=== PATIENT | male | born 1940 | race Caucasian/White ===

== ENCOUNTER 2017-12-18 20:23 | Inpatient (IN) | payer OTHER, MEDICARE ==
[~2017-12-18] VITALS: Ht 177.8 cm; Wt 85.0 kg
[~2017-12-18 20:23] MED LIST: AMIO200T PO; Aspirin Chew PO; LACT PO; LISI10TA3 PO; METO-426 PO; NOVO7030P2 SQ; OMEP20TA39 PO; PLAV75TA29 PO; PRED10PA PO; ROSU1TAB10 PO; SILD20 PO; VITA100018 PO; ZANTTAB PO
[2017-12-18 20:32] VITALS: O2SAT 96
[2017-12-18 20:34] VITALS: BP 217/106; PULSE 95; RESP 18; TEMP 98.1; O2SAT 95
--- NOTE | 2017-12-18 20:48 | PD ---
Physical Exam Date Seen by Provider: Dec 18, 2017 Narrative Patient presents to us for evaluation of a right hip injury following a trip and fall. This patient already has hardware in his right hip. Data Data Last Documented VS Vital Signs Date Time Temp Pulse Resp B/P (MAP) Pulse Ox O2 Delivery O2 Flow Rate FiO2 12/18/17 20:34 98.1 95 18 217/106 (143) 95 Nasal Cannula 2.00 Orders Orders Femur (Ap & Lat/2vws) (12/18/17 20:30) Hip, Uni(Ap&Lat) W Ap Pelvis (12/18/17 20:30) Ice/Cold Pack (12/18/17 20:30) Complete Blood Count With Diff (12/18/17 20:30) Basic Metabolic Panel (Bmp) (12/18/17 20:30) Prothrombin Time / Inr (Pt) (12/18/17 20:30) Act Partial Throm Time (Ptt) (12/18/17 20:30) Magnesium (Mg) (12/18/17 20:30) Iv Access Insert/Monitor (12/18/17 20:30) Ecg Monitoring (12/18/17 20:30) Oximetry (12/18/17 20:30) MDM Supervised Visit with IZYAD: Yes Narrative Course I, Dr. Das have reviewed the advance practice practitioner's documentation and am in agreement, met with the patient face to face, made the diagnosis, and the medical decision making was done by me. *My assessment and Findings: Patient is awake and alert. He is leaning towards his right and is holding his right hip and knee slightly flexed. He has good distal pulses. He does have some pretibial and pedal edema. See Sanchez Lopes note for lab and radiology results, final diagnosis and disposition Radha Das MD Dec 18, 2017 20:48
--- NOTE | 2017-12-18 20:54 | PD ---
HPI Chief Complaint: Fall Time Seen by Provider: 20:26 Travel History International Travel<30 days: No Contact w/Intl Traveler<30days: No Traveled to known affect area: No History of Present Illness HPI 77-year-old male presents to the ED via ambulance for evaluation of right hip injury. Patient had a mechanical fall today on his house. Apparently patient tripped and landed on his right hip. Patient was not able to get up on his own. Ambulance was contacted. Patient denies any his head or losing consciousness. Patient does not take any blood thinners. Injury occurred less than an hour ago. Patient has obvious deformity to the right hip. Per patient he had a fracture in 1997 which [address] surgery [address] Dr. Smith. Per patient he has had no issues since. He no longer follows with Dr. Smith as this injury occurred years ago. He has no allergies to medication. He was given morphine by ambulance. Per patient his pain is 8 out of 10. Gets worse with movement. He denies any other injuries. No back or neck pain. 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) High Cholesterol: Yes Chemotherapy: No Chest Pain: No Congestive Heart Failure: No COPD: No Cerebrovascular Accident: Yes Diabetes: Yes (iv insulin ) Patient Takes Glucophage: Yes Diminished Hearing: No Endocrine: Yes Gastrointestinal Disorders: Yes (VIVIENNE VERA) GERD: Yes Genitourinary: No Hypertension: Yes Immune Disorder: No Implanted Vascular Access Dvce: Yes Kidney Stones: Yes Musculoskeletal: Yes Neurologic: Yes (STROKE) Psychiatric: No Reproductive: No Respiratory: No Immunizations Current: Yes Myocardial Infarction: Yes Radiation Therapy: No Sleep Apnea: No Thyroid Disease: No Influenza Vaccination: Yes Past Surgical History Abdominal Surgery: Yes (MAC, ) Appendectomy: Yes Body Medical Devices: 3 TITANIUM SCREWS IN RIGHT HIP Cardiac Surgery: Yes (STENTS, CARDIAC CATH) Cholecystectomy: Yes (1999) Other Surgery: Yes (ENDARTERECTOMY) Social History Alcohol Use: Yes (BEER ONCE IN A WHILE/OCCASIONAL SHOT OF LIQUOR) Tobacco Use: No Substance Use: No Allergies-Medications (Allergen,Severity, Reaction): Coded Allergies: No Known Allergies (Verified Adverse Reaction, Unknown, 4/16/18) Reported Meds & Prescriptions Reported Meds & Active Scripts Active Lisinopril 10 Mg Tab 10 Mg PO DAILY Prednisone (21) 10 mg tab Dose Pack (Prednisone) 10 Mg Pack 10 Mg PO DIRECTED Plavix (Clopidogrel Bisulfate) 75 Mg Tab 75 Mg PO DAILY [Aspirin Chew] 81 MG Chew 81 Mg PO DAILY Amiodarone (Amiodarone HCl) 200 Mg Tab 400 Mg PO BID Reported Novolin 70-30 Inj (Insulin Human Isoph/Insulin Regular) 1,000 Unit/10 Ml Vial 30 Units SQ BID Revatio (Sildenafil Citrate) 20 Mg Tab 150 Mg PO WEEKLY Rosuvastatin (Rosuvastatin Calcium) 40 Mg Tab 40 Mg PO HS Zantac 150 Maximum Strength (Ranitidine HCl) 150 Mg Tab 150 Mg PO BID Vitamin D3 (Cholecalciferol) 1,000 Unit Tab 1,000 Units PO DAILY Metoprolol Tartrate 75 Mg Tab 75 Mg PO BID Review of Systems Except as stated in HPI: all other systems reviewed are Neg Physical Exam Narrative GENERAL: SKIN: Warm and dry. HEAD: Atraumatic. Normocephalic. EYES: Pupils equal and round. No scleral icterus. No injection or drainage. ENT: No nasal bleeding or discharge. Mucous membranes pink and moist. Tongue is midline. No uvula deviation. NECK: Trachea midline. No JVD. CARDIOVASCULAR: Regular rate and rhythm. No murmurs, S3, S4. RESPIRATORY: No accessory muscle use. Clear to auscultation. Breath sounds equal bilaterally. GASTROINTESTINAL: Abdomen soft, non-tender, nondistended. Hepatic and splenic margins not palpable. MUSCULOSKELETAL: Extremities without clubbing, cyanosis, or edema. No obvious deformities. Full range of motion of the upper and lower extremities bilaterally with exception of the right hip which patient keeps externally rotated and will not move without severe pain. Shortening noted. 2+ pulses bilaterally in the lower extremities in the dorsalis pedis and posterior tibialis. No obvious lumbar, thoracic, cervical spine tenderness to palpation. NEUROLOGICAL: Awake and alert. No obvious cranial nerve deficits. Motor grossly within normal limits. Five out of 5 muscle strength in the arms and legs. Normal speech. PSYCHIATRIC: Appropriate mood and affect; insight and judgment normal. Data Data Last Documented VS Vital Signs Date Time Temp Pulse Resp B/P (MAP) Pulse Ox O2 Delivery O2 Flow Rate FiO2 12/18/17 22:03 95 20 198/99 (132) 100 Room Air 12/18/17 20:34 98.1 2.00 Orders Orders Femur (Ap & Lat/2vws) (12/18/17 20:30) Ice/Cold Pack (12/18/17 20:30) Complete Blood Count With Diff (12/18/17 20:30) Basic Metabolic Panel (Bmp) (12/18/17 20:30) Prothrombin Time / Inr (Pt) (12/18/17 20:30) Act Partial Throm Time (Ptt) (12/18/17 20:30) Magnesium (Mg) (12/18/17 20:30) Iv Access Insert/Monitor (12/18/17 20:30) Ecg Monitoring (12/18/17 20:30) Oximetry (12/18/17 20:30) Hip, Uni(Ap&Lat) Wo Ap Pelvis (12/18/17 20:30) Chest, Single Ap (12/18/17 ) Hydromorphone Pf Inj (Dilaudid Pf Inj) (12/18/17 21:45) Ondansetron Inj (Zofran Inj) (12/18/17 21:45) Type And Screen (12/18/17 22:21) Urinalysis - C+S If Indicated (12/18/17 22:21) Electrocardiogram (12/18/17 ) Splint Or Brace Apply/Monitor (12/18/17 22:23) Admit Order (Ed Use Only) (12/18/17 22:28) Labs Laboratory Tests Test 12/18/17 20:53 White Blood Count 8.7 TH/MM3 Red Blood Count 3.94 MIL/MM3 Hemoglobin 13.6 GM/DL Hematocrit 38.7 % Mean Corpuscular Volume 98.2 FL Mean Corpuscular Hemoglobin 34.5 PG Mean Corpuscular Hemoglobin Concent 35.2 % Red Cell Distribution Width 14.0 % Platelet Count 194 TH/MM3 Mean Platelet Volume 8.9 FL Neutrophils (%) (Auto) 70.7 % Lymphocytes (%) (Auto) 16.0 % Monocytes (%) (Auto) 8.6 % Eosinophils (%) (Auto) 3.9 % Basophils (%) (Auto) 0.8 % Neutrophils # (Auto) 6.1 TH/MM3 Lymphocytes # (Auto) 1.4 TH/MM3 Monocytes # (Auto) 0.8 TH/MM3 Eosinophils # (Auto) 0.3 TH/MM3 Basophils # (Auto) 0.1 TH/MM3 CBC Comment DIFF FINAL Differential Comment Prothrombin Time 9.5 SEC Prothromb Time International Ratio 0.9 RATIO Activated Partial Thromboplast Time 22.9 SEC Blood Urea Nitrogen 18 MG/DL Creatinine 1.24 MG/DL Random Glucose 248 MG/DL Calcium Level 7.5 MG/DL Magnesium Level 1.5 MG/DL Sodium Level 138 MEQ/L Potassium Level 4.8 MEQ/L Chloride Level 109 MEQ/L Carbon Dioxide Level 19.1 MEQ/L Anion Gap 10 MEQ/L Estimat Glomerular Filtration Rate 57 ML/MIN MDM Medical Decision Making Medical Screen Exam Complete: Yes Emergency Medical Condition: Yes Medical Record Reviewed: Yes Interpretation(s) CBC & BMP Diagram 12/18/17 20:53 Calcium Level 7.5 L, Magnesium Level 1.5 Last Impressions Hip X-Ray 12/18/172029 Signed Impressions: Service Date/Time: Monday, December 18, 2017 21:01 - CONCLUSION: Acute oblique fracture at the proximal femoral shaft. The patient has surgical screws through the femoral neck from prior ORIF. Wesley Neves MD Femur X-Ray 12/18/172029 Signed Impressions: Service Date/Time: Monday, December 18, 2017 21:03 - CONCLUSION: Acute fracturing of the proximal femoral shaft. Wesley Neves MD Chest X-Ray 12/18/17 0000 Signed Impressions: Service Date/Time: Monday, December 18, 2017 21:46 - CONCLUSION: No acute disease. Wesley Neves MD [facility] Differential Diagnosis Fracture versus sprain versus strain versus bruise versus contusion versus dislocation Narrative Course 77-year-old male that presents to the ED for evaluation of right hip injury. Patient was properly examined and was found to have signs and symptoms concerning for fracture versus dislocation versus both. Labs and imaging ordered. Labs and imaging shows femoral shaft fracture. Labs and imaging were ordered. Labs and imaging otherwise unremarkable. This time patient will be admitted for further evaluation and surgery for his hip. Patient agrees with this. Case discussed with Dr. Das who evaluated the patient agrees with plan. Case discussed with Dr. Vuong who agrees to admission to her service. Diagnosis Primary Impression: Right femoral shaft fracture Qualified Codes: S72.301A - Unspecified fracture of shaft of right femur, initial encounter for closed fracture Admitting Information Admitting Physician Requests: Admit Patric Cali Dec 18, 2017 20:53
[2017-12-18 21:13] LABS: AUTOMATED NEUTROPHIL # 6.1 TH/MM3 (1.8-7.7); BASOPHIL # 0.1 TH/MM3 (0-0.2); BASOPHIL % 0.8 % (0.0-2.0); EOSINOPHIL # 0.3 TH/MM3 (0-0.4); EOSINOPHIL % 3.9 % (0.0-4.0); HEMATOCRIT 38.7 % (39.0-51.0); HEMOGLOBIN 13.6 GM/DL (13.0-17.0); LYMPHOCYTE # 1.4 TH/MM3 (1.0-4.8); MEAN CELL VOLUME 98.2 FL (80.0-100.0); MEAN CORPUSCULAR HEMOGLOBIN 34.5 PG (27.0-34.0); MEAN CORPUSCULAR HGB CONC 35.2 % (32.0-36.0); MEAN PLATELET VOLUME 8.9 FL (7.0-11.0); MONO % 8.6 % (0.0-8.0); MONOCYTE # 0.8 TH/MM3 (0-0.9); NEUT % 70.7 % (16.0-70.0); PLATELET COUNT 194 TH/MM3 (150-450); RED BLOOD COUNT 3.94 MIL/MM3 (4.50-5.90); WHITE BLOOD COUNT 8.7 TH/MM3 (4.0-11.0)
[2017-12-18 21:19] LABS: INTERNATIONAL NORMALIZED RATIO 0.9 RATIO; PROTHROMBIN TIME - PATIENT 9.5 SEC (9.8-11.6)
[2017-12-18 21:30] LABS: BICARBONATE 19.1 MEQ/L (21.0-32.0); CALCIUM 7.5 MG/DL (8.5-10.1); CREATININE 1.24 MG/DL (0.60-1.30); MAGNESIUM 1.5 MG/DL (1.5-2.5)
[2017-12-18] MEDS ORDERED: ONDANSETRON HCL 4 MG/2 ML VIAL IV PUSH ONE (21:45)
[2017-12-18] MEDS ORDERED: HYDROmorphone HCL PF 2 MG/ML VIAL IV PUSH ONE (21:45)
--- NOTE | 2017-12-18 21:47 | RADRPT ---
EXAM DATE/TIME: 12/18/2017 21:01 [facility] COMPARISON: No previous studies available for comparison. INDICATIONS : Fall. Right hip pain. MEDICAL HISTORY : Myocardial infarction. Gastroesophageal reflux disease. Stroke. Numbness. Nephrolithiasis. Arthr itis. Diabetes. SURGICAL HISTORY : Cholecystectomy. Appendectomy. Left carotid endarterectomy. Cardiac stent. Cardiac catheterization. Right hip pinning ENCOUNTER: Subsequent ACUITY: 1 day PAIN SCORE: 10/10 LOCATION: Right hip FINDINGS: There is an oblique fracture through the proximal right femur. There are 3 screws seen through the ri ght femoral neck. There is hypertrophic degenerative change at the hip joint and femoral head. There is joint space narrowing. The bones are osteopenic. Vascular calcifications are seen. CONCLUSION: Acute oblique fracture at the proximal femoral shaft. The patient has surgical screws through the fem oral neck from prior ORIF. Wesley Neves MD on December 18, 2017 at 21:44 Board Certified Radiologist. This report was verified electronically.
--- NOTE | 2017-12-18 21:49 | RADRPT ---
EXAM DATE/TIME: 12/18/2017 21:03 [facility] COMPARISON: No previous studies available for comparison. INDICATIONS : Fall. Right hip pain. MEDICAL HISTORY : Myocardial infarction. Gastroesophageal reflux disease. Stroke. Numbness. Nephrolithiasis. Arthr itis. Diabetes. SURGICAL HISTORY : Cholecystectomy. Appendectomy. Left carotid endarterectomy. Cardiac stent. Cardiac catheterization. Right hip pinning. ENCOUNTER: Subsequent ACUITY: 1 day PAIN SCORE: 10/10 LOCATION: Right hip FINDINGS: There is no oblique fracture through the proximal right femoral shaft. The femoral neck is intact. Th ere are 3 screws seen through the femoral neck from prior ORIF. There is degenerative change at the h ip joint with joint space narrowing and remodeling of the femoral head. There is joint space narrowin g seen at the knee. Vascular calcifications are present. CONCLUSION: Acute fracturing of the proximal femoral shaft. Wesley Neves MD on December 18, 2017 at 21:46 Board Certified Radiologist. This report was verified electronically.
[2017-12-18 22:03] VITALS: BP 198/99; PULSE 95; RESP 20; O2SAT 100
--- NOTE | 2017-12-18 22:12 | RADRPT ---
EXAM DATE/TIME: 12/18/2017 21:46 [facility] COMPARISON: CHEST SINGLE AP, September 01, 2015, 4:05. INDICATIONS : evaluate chest for trauma, fell MEDICAL HISTORY : Myocardial infarction. Gastroesophageal reflux disease. Stroke. Nephrolithiasis. Arthritis. Diabetes SURGICAL HISTORY : Cholecystectomy. Appendectomy. Left carotid endarterectomy. Cardiac stent Cardiac catheterization. Ri ght hip pinning ENCOUNTER: Initial ACUITY: 1 day PAIN SCORE: 0/10 LOCATION: chest FINDINGS: The patient is status post sternotomy. The heart size is normal. The lungs are grossly clear. No effu rudolph is seen. CONCLUSION: No acute disease. Wesley Neves MD on December 18, 2017 at 22:10 Board Certified Radiologist. This report was verified electronically.
[2017-12-18 22:52] VITALS: BP 189/98; PULSE 97; RESP 18; O2SAT 98
[2017-12-18 23:06] LABS: BILIRUBIN, URINE NEG (NEG); BLOOD, URINE TRACE (NEG); GLUCOSE,URINE 1000 mg/dL (NEG); KETONE, URINE TRACE mg/dL (NEG); NITRITE,URINE NEG (NEG); SQUAMOUS EPITHELIAL CELL URINE <1 /hpf (0-5); URINE COLOR YELLOW (YELLW/STRAW); URINE LEUKOCYTE ESTERASE NEG (NEG)
[2017-12-19 00:01] VITALS: BP 177/87; PULSE 89; RESP 18; O2SAT 98
--- NOTE | 2017-12-19 00:40 | HHI.HP ---
[facility] Service [facility] Primary Care Physician [facility] Admission Diagnosis acute right femoral shaft fracture Diagnoses: Travel History International Travel<30 Days: No Contact w/Intl Traveler <30 Da: No Traveled to Known Affected Are: No History of Present Illness 77-year-old male with a past medical history significant for insulin-dependent diabetes mellitus, coronary artery disease, hypertension and hyperlipidemia presents the emergency department for evaluation of a fall. The patient reports that he was placed taking out the trash when he lost his footing and fell backwards. He states he then twisted to the right following on his right hip. He is denies any loss of consciousness. He denies any other injuries. Complains of right lower extremity pain. No chest pain or shortness of breath. No abdominal pain. No nausea/vomiting/diarrhea. No weakness/fatigue. Review of Systems Except as stated in HPI: all other systems reviewed are Neg Past Family Social History Past Medical History Diabetes mellitus CAD Hypertension Hyperlipidemia Past Surgical History Status post CABG (unknown number of vessels) Appendectomy Right hip surgery Reported Medications Reported Meds & Active Scripts Active Lisinopril 10 Mg Tab 10 Mg PO DAILY Prednisone (21) 10 mg tab Dose Pack (Prednisone) 10 Mg Pack 10 Mg PO DIRECTED Plavix (Clopidogrel Bisulfate) 75 Mg Tab 75 Mg PO DAILY [Aspirin Chew] 81 MG Chew 81 Mg PO DAILY Amiodarone (Amiodarone HCl) 200 Mg Tab 400 Mg PO BID Reported Novolin 70-30 Inj (Insulin Human Isoph/Insulin Regular) 1,000 Unit/10 Ml Vial 30 Units SQ BID Revatio (Sildenafil Citrate) 20 Mg Tab 150 Mg PO WEEKLY Rosuvastatin (Rosuvastatin Calcium) 40 Mg Tab 40 Mg PO HS Zantac 150 Maximum Strength (Ranitidine HCl) 150 Mg Tab 150 Mg PO BID Vitamin D3 (Cholecalciferol) 1,000 Unit Tab 1,000 Units PO DAILY Metoprolol Tartrate 75 Mg Tab 75 Mg PO BID Allergies: Coded Allergies: No Known Allergies (Verified Adverse Reaction, Unknown, 12/18/17) Family History Patient was adopted. Social History Occasional alcohol. Denies tobacco and illicit drugs. Physical Exam Vital Signs Vital Signs Date Time Temp Pulse Resp B/P (MAP) Pulse Ox O2 Delivery O2 Flow Rate FiO2 12/19/17 00:01 89 18 177/87 (117) 98 Room Air 12/18/17 22:52 97 18 189/98 (128) 98 Room Air 12/18/17 22:03 95 20 198/99 (132) 100 Room Air 12/18/17 20:34 98.1 95 18 217/106 (143) 95 Nasal Cannula 2.00 12/18/17 20:32 96 Nasal Cannula 2.00 Physical Exam GENERAL: male lying in bed SKIN: No rashes, ecchymoses or lesions. Cool and dry. HEAD: Atraumatic. Normocephalic. No temporal or scalp tenderness. EYES: Pupils equal round and reactive. Extraocular motions intact. No scleral icterus. No injection or drainage. ENT: Nose without bleeding, purulent drainage or septal hematoma. Throat without erythema, tonsillar hypertrophy or exudate. Uvula midline. Airway patent. NECK: Trachea midline. No JVD or lymphadenopathy. Supple, nontender, no meningeal signs. CARDIOVASCULAR: Regular rate and rhythm without murmurs, gallops, or rubs. RESPIRATORY: Clear to auscultation. Breath sounds equal bilaterally. No wheezes , rales, or rhonchi. GASTROINTESTINAL: Abdomen soft, non-tender, nondistended. No hepato-splenomegaly , or palpable masses. No guarding. MUSCULOSKELETAL: Extremities without clubbing, cyanosis, or edema. Right leg externally rotated. Neurovascularly intact. NEUROLOGICAL: Awake and alert. Cranial nerves II through XII intact. Motor and sensory grossly within normal limits. Normal speech. Laboratory Laboratory Tests Test 12/18/17 20:53 12/18/17 22:46 White Blood Count 8.7 Red Blood Count 3.94 Hemoglobin 13.6 Hematocrit 38.7 Mean Corpuscular Volume 98.2 Mean Corpuscular Hemoglobin 34.5 Mean Corpuscular Hemoglobin Concent 35.2 Red Cell Distribution Width 14.0 Platelet Count 194 Mean Platelet Volume 8.9 Neutrophils (%) (Auto) 70.7 Lymphocytes (%) (Auto) 16.0 Monocytes (%) (Auto) 8.6 Eosinophils (%) (Auto) 3.9 Basophils (%) (Auto) 0.8 Neutrophils # (Auto) 6.1 Lymphocytes # (Auto) 1.4 Monocytes # (Auto) 0.8 Eosinophils # (Auto) 0.3 Basophils # (Auto) 0.1 CBC Comment DIFF FINAL Differential Comment Prothrombin Time 9.5 Prothromb Time International Ratio 0.9 Activated Partial Thromboplast Time 22.9 Blood Urea Nitrogen 18 Creatinine 1.24 Random Glucose 248 Calcium Level 7.5 Magnesium Level 1.5 Sodium Level 138 Potassium Level 4.8 Chloride Level 109 Carbon Dioxide Level 19.1 Anion Gap 10 Estimat Glomerular Filtration Rate 57 Urine Color YELLOW Urine Turbidity CLEAR Urine pH 7.0 Urine Specific [place] 1.011 Urine Protein 100 Urine Glucose (UA) 1000 Urine Ketones TRACE Urine Occult Blood TRACE Urine Nitrite NEG Urine Bilirubin NEG Urine Urobilinogen LESS THAN 2.0 Urine Leukocyte Esterase NEG Urine RBC 1 Urine WBC 1 Urine Squamous Epithelial Cells <1 Microscopic Urinalysis Comment CULT NOT INDICATED Result Diagram: 12/18/17205212/18/172052 Caprini VTE Risk Assessment Caprini VTE Risk Assessment: Mod/High Risk (score >= 2) Caprini Risk Assessment Model Point Value = 1 Point Value = 2 Point Value = 3 Point Value = 5 Age 41-60 Minor surgery BMI > 25 kg/m2 Swollen legs Varicose veins or History of unexplained or recurrent spontaneous Oral contraceptives or hormone replacement Sepsis (< 1 month) Serious lung disease, including pneumonia (< 1 month) Abnormal pulmonary function Acute myocardial infarction Congestive heart failure (< 1 month) History of inflammatory bowel disease Medical patient at bed rest Age 61-74 Arthroscopic surgery Major open surgery (> 45 min) Laparoscopic surgery (> 45 min) Malignancy Confined to bed (> 72 hours) Immobilizing plaster cast Central venous access Age >= 75 History of VTE Family history of VTE Factor V Leiden Prothrombin [id number] Lupus anticoagulant Anticardiolipin antibodies Elevated serum homocysteine Heparin-induced thrombocytopenia Other congenital or acquired thrombophilia Stroke (< 1 month) Elective arthroplasty Hip, pelvis, or leg fracture Acute spinal cord injury (< 1 month) Prophylaxis Regimen Total Risk Factor Score Risk Level Prophylaxis Regimen 0-1 Low Early ambulation 2 Moderate Order ONE of the following: *Sequential Compression Device (SCD) *Heparin 5000 units SQ BID 3-4 Higher Order ONE of the following medications: *Heparin 5000 units SQ TID *Enoxaparin/Lovenox 40 mg SQ daily (WT < 150 kg, CrCl > 30 mL/min) *Enoxaparin/Lovenox 30 mg SQ daily (WT < 150 kg, CrCl > 10-29 mL/min) *Enoxaparin/Lovenox 30 mg SQ BID (WT < 150 kg, CrCl > 30 mL/min) AND/OR *Sequential Compression Device (SCD) 5 or more Highest Order ONE of the following medications: *Heparin 5000 units SQ TID (Preferred with Epidurals) *Enoxaparin/Lovenox 40 mg SQ daily (WT < 150 kg, CrCl > 30 mL/min) *Enoxaparin/Lovenox 30 mg SQ daily (WT < 150 kg, CrCl > 10-29 mL/min) *Enoxaparin/Lovenox 30 mg SQ BID (WT < 150 kg, CrCl > 30 mL/min) AND *Sequential Compression Device (SCD) Assessment and Plan Assessment and Plan Assessment/plan: 1. Right femur fracture Hip x-ray significant for acute oblique fracture at the proximal femoral shaft Orthopedic surgery consulted, appreciate assistance Dilaudid for pain N.p.o. 2. Diabetes mellitus Holding home Novolin as patient n.p.o. Sliding-scale insulin Monitor blood glucose 3. Hypertension/hyperlipidemia/coronary artery disease Holding home aspirin/Plavix Continue home medications FEN NPO NS at 100 cc/hr Electrolytes: monitor and replete prn Holding pharmacologic anticoagulation secondary to anticipated operative intervention Physician Certification 2 Midnight Certification Type: Admission for Inpatient Services Order for Inpatient Services The services are ordered in accordance with Medicare regulations or non- Medicare payer requirements, as applicable. In the case of services not specified as inpatient-only, they are appropriately provided as inpatient services in accordance with the 2-midnight benchmark. Estimated LOS (days): 2 2 days is the estimated time the patient will need to remain in the hospital, assuming treatment plan goals are met and no additional complications. Post-Hospital Plan: Not yet determined Jolene Vuong MD Dec 19, 2017 00:40
[2017-12-19] MEDS ORDERED: SENNOSIDES 8.6 MG TAB PO PRN (00:45)
[2017-12-19] MEDS ORDERED: LACTULOSE SYRUP 20 GM/30 ML CUP PO PRN (00:45)
[2017-12-19] MEDS ORDERED: SODIUM CHLORIDE 0.9% FLUSH 10 ML FLUSH IV FLUSH PRN (00:45)
[2017-12-19] MEDS ORDERED: DEXTROSE 50% IN WATER 50 ML VIAL(D50) IV PUSH PRN (00:45)
[2017-12-19] MEDS ORDERED: NALOXONE HCL 0.4 MG/ML AMP IV PUSH PRN (00:45)
[2017-12-19] MEDS ORDERED: MAGNESIUM HYDROXIDE SUSP 30 ML CUP PO PRN (00:45)
[2017-12-19] MEDS ORDERED: ACETAMINOPHEN 325 MG TAB PO PRN (00:45)
[2017-12-19] MEDS ORDERED: GLUCAGON 1 MG/ML VIAL OTHER PRN (00:45)
[2017-12-19] MEDS ORDERED: BISACODYL 10 MG SUPP RECTAL PRN (00:45)
[2017-12-19] MEDS ORDERED: ONDANSETRON HCL 4 MG/2 ML VIAL IVP PRN (00:45)
[2017-12-19] MEDS: HYDROmorphone HCL PF 2 MG/ML VIAL IV PUSH PRN ×2 (00:50→05:04)
[2017-12-19] MEDS: SODIUM CHLOR 0.9% 1000 ML INJ 1,000 ML IV SCH ×3 (00:56→20:31)
[2017-12-19 04:22] VITALS: BP 161/82; PULSE 106; RESP 18; TEMP 97.8; O2SAT 96
[2017-12-19] MEDS ORDERED: SODIUM CHLORID 0.9% 500 ML IV PRN (06:15)
[2017-12-19] MEDS ORDERED: POVIDONE IODINE 5% (ANTISEPSIS KIT) 4 APPLICATIONS EACH NARE PRN (06:15)
[2017-12-19] MEDS ORDERED: CHLORHEXIDINE GLUCONATE 2 % 1 PACK (2 CLOTHS) TOPICAL PRN (06:15)
[2017-12-19] MEDS ORDERED: ceFAZolin INJ 1,000 MG VIAL ONE (07:15)
[2017-12-19] MEDS ORDERED: VANCOMYCIN HCL 1000 MG VIAL ONE (07:15)
[2017-12-19] MEDS ORDERED: GENTAMICIN SULFATE 80 MG/2 ML VIAL ONE (07:15)
[2017-12-19] MEDS: LACTATED RINGER'S 1000 ML IV PRN ×2 (07:15→22:32)
[2017-12-19] MEDS ORDERED: SODIUM CHLOR 0.9% 250 ML INJ 250 ML ONE (07:16)
--- NOTE | 2017-12-19 07:18 | MB ---
cc: Dima Velazquez MD DATE: 12/19/2017 REASON FOR CONSULTATION: Right proximal femur fracture. HISTORY OF PRESENT ILLNESS: Vasyl is a 77-year-old male who has a history of diabetes, coronary artery disease, hypertension, and high cholesterol. He states that he was taking his trash out when he lost his balance and fell. He landed on his right side. He had immediate right hip pain. He has a history of previous right hip fracture more than 10 years ago treated with internal fixation. Currently, his only complaint is his right hip. He denies dizziness, syncope, loss of consciousness. The pain is worse with movement and is improved with rest. PAST MEDICAL HISTORY: Illnesses: Diabetes, coronary artery disease, hypertension, and high cholesterol. PAST SURGICAL HISTORY: Coronary artery bypass, appendectomy, and right hip pinning. MEDICATIONS: 1. Lisinopril. 2. Prednisone. 3. Plavix. 4. Aspirin. 5. Amiodarone. 6. Insulin. 7. Zantac. 8. Vitamin D. 9. Metoprolol. ALLERGIES: NO KNOWN DRUG ALLERGIES. FAMILY HISTORY: The patient was adopted. His family history is unknown. SOCIAL HISTORY: The patient denies tobacco or drug use. He does drink alcohol occasionally. REVIEW OF SYSTEMS: The patient denies headache, visual changes, neck pain, chest pain, shortness of breath, abdominal pain, nausea, vomiting, recent weight loss, fevers or chills, numbness or tingling of extremities or recent weight loss. He complains of right hip pain. The pain is worse with movement. PHYSICAL EXAMINATION: GENERAL: The patient is a well-developed, well-nourished, 77-year-old male. He is awake and alert. He appears well-developed and well-nourished. He is in no acute distress. VITAL SIGNS: Temperature 97.8, pulse 106, respirations 18, blood pressure 161/82, O2 saturations 96% on room air. HEENT: The patient is normocephalic. Pupils are equal. NECK: Soft, nontender. The trachea is in the midline. ABDOMEN: Soft, nontender, nondistended. EXTREMITIES: Examination of bilateral upper extremities reveals no significant pain with shoulder, elbow or wrist motion. He has intact sensation in all fingers bilaterally. Radial pulses are palpable. Skin is intact to both hands. Examination of the left leg reveals no pain with hip, knee or ankle motion. Skin is intact. Dorsalis pedis pulses palpable. Sensation is intact. Skin is intact. Examination of right leg reveals pain with any hip motion. He is diffusely tender to palpation on the proximal femur. Thigh and calf compartments are soft. Sensation is intact to the right foot. Dorsalis pedis pulses palpable. X-RAYS: X-rays of right hip and femur were reviewed. X-rays reveal a healed femoral neck fracture. Hardware is in place. There are mild degenerative changes. He has a subtrochanteric femur fracture present. LABORATORY DATA: The patient has a white blood cell count of 8.7, hematocrit of 38.7, platelet count of 194. INR 0.9. BUN is 18 and creatinine is 1.24. IMPRESSION: 1. Displaced right proximal femur fracture. 2. Retained hardware from previous surgery, right hip. 3. Insulin-dependent diabetes. 4. Coronary artery disease. 5. Hypertension. PLAN: Treatment options were discussed with the patient. At this point, I would recommend removal of hardware from right hip followed by open reduction and intramedullary nail fixation of right femur. Risks of surgery include bleeding, infection, injuries to arteries, nerves and blood vessels, nonunion, malunion, painful hardware, as well as medical complications including blood clot, stroke, heart attack and . All questions were answered. He will need to continue to manage his diabetes well. He will also need to take calcium and vitamin D. All questions were answered. A mid-level provider in my office, nurse practitioner or PA, may see this patient on a follow-up basis and continue to implement the objective of this plan including: Starting or adjusting medications, injections of muscle, tendon, bursa or joints, cast application, orthotic or brace application, physical therapy, further radiographic studies including x-ray, MRI, CT, ultrasounds or bone scan, vascular studies, neurologic studies, or other specialist consultations, and proceeding with surgical management as appropriate. Dima Velazquez MD LATIF/DL , 06:58 AM , 07:17 AM
[2017-12-19] MEDS ORDERED: VITA2000 PO (08:59)
[2017-12-19] MEDS ORDERED: WALKER/ADULT/FO1 MIS (08:59)
[2017-12-19] MEDS ORDERED: HYDR-3580 PO (08:59)
[2017-12-19] MEDS ORDERED: CALCTAB19 PO (08:59)
[2017-12-19] MEDS ORDERED: VITA500012 PO (08:59)
[2017-12-19] MEDS ORDERED: XARE10TA PO (08:59)
[2017-12-19] MEDS: SODIUM CHLORIDE 0.9% FLUSH 10 ML FLUSH IV FLUSH SCH ×2 (09:00→21:00)
--- NOTE | 2017-12-19 10:17 | PD.ORT.PN ---
Subjective Subjective Remarks Mechanical fall in house with right hip pain. Was unable to ambulate. Objective Vitals Vital Signs Date Time Temp Pulse Resp B/P (MAP) Pulse Ox O2 Delivery O2 Flow Rate FiO2 12/19/17 04:22 97.8 106 18 161/82 (108) 96 12/19/17 00:39 12/19/17 00:01 89 18 177/87 (117) 98 Room Air 12/18/17 22:52 97 18 189/98 (128) 98 Room Air 12/18/17 22:03 95 20 198/99 (132) 100 Room Air 12/18/17 20:34 98.1 95 18 217/106 (143) 95 Nasal Cannula 2.00 12/18/17 20:32 96 Nasal Cannula 2.00 I/O 12/18/17 12/18/17 12/18/17 12/19/17 12/19/17 12/19/17 07:00 15:00 23:00 07:00 15:00 23:00 Intake Total 700 ml Output Total 75 ml Balance 625 ml Other 700 ml Output Estimated Blood Loss 75 ml # Voids 1 Result Diagram: 12/18/17205212/18/172052 Other Results Laboratory Tests Test 12/18/17 20:53 Prothromb Time International Ratio 0.9 RATIO Prothrombin Time 9.5 SEC (9.8-11.6) Imaging Last 24 hours Impressions Hip X-Ray 12/18/172029 Signed Impressions: Service Date/Time: Monday, December 18, 2017 21:01 - CONCLUSION: Acute oblique fracture at the proximal femoral shaft. The patient has surgical screws through the femoral neck from prior ORIF. Wesley Neves MD Femur X-Ray 12/18/172029 Signed Impressions: Service Date/Time: Monday, December 18, 2017 21:03 - CONCLUSION: Acute fracturing of the proximal femoral shaft. Wesley Neves MD Objective Remarks Bilateral extremities: No pain with range of motion shoulder elbow or wrist. Neurovascular intact distally Left lower extremity: Full range of motion neurovascularly intact Right lower extremity: Pain to palpation of hip. No pain to palpation of her knee or ankle. Distally intact sensation with good capillary refills. Active dorsiflexion and plantar flexion of foot. Assessment & Plan Assessment and Plan Right intertrochanteric femur fracture with retained hardware from previous femoral neck fracture N.p.o. Surgery today for removal of hardware and intramedullary vickey fixation of the right femur. Sign consents Reynaldo Ken Jr. Dec 19, 2017 10:17
--- NOTE | 2017-12-19 10:21 | PD.OP ---
cc: Dima Story MD Operative Report Date of Surgery: Dec 19, 2017 Preoperative Diagnosis: Displaced right subtrochanteric femur fracture, retained hardware right hip Postoperative Diagnosis: Procedure: Removal deep hardware right hip, right femur intramedullary vickey fixation Anesthesia: General Surgeon: Dima Story [employer] Management Technician(s): CY Whitney PA-C The surgical procedure was assisted by my physician laundry assistant. My P.A. presence was necessary throughout this case for the manipulation and positioning of the surgical extremity. My P.A. was assisting me throughout the duration of this procedure. The skill set of a physician laundry assistant was medically necessary to complete this procedure. During the surgical case the surgical sales representative was working at the back table and the physician laundry assistant was directly assisting me. Operation and Findings: Implants used: [11]mm x [380]mm Synthes 130 troch nail Plan of activity: 50% weight right leg Patient was seen and evaluated preoperatively. The patient has significant hip pain from proximal femur fracture. The risk and benefits of surgery were discussed in depth with the patient to include bleeding, infection, nonunion, malunion, need for hip replacement, painful hardware, as well as medical competitions including blood clots, stroke, heart attack, and . Informed consent was obtained. Operative site was marked. Patient was brought to the operating room and placed on fracture table. IV sedation was administered by anesthesiologist. Timeout procedure was performed. Hip and leg were prepped with alcohol followed by DuraPrep and draped in the usual sterile fashion. IV antibiotics were given prior to incision. Procedure began with removal of deep hardware. A 2 inch incision was made over the lateral aspect of the trochanter. Fluoroscopy was used to identify the location of the 3 screws. Iliotibial band was split with Bovie. The screw heads were now identified. Using the appropriate screwdriver, each of the screws was removed. Fluoroscopy confirmed removal of appropriate hardware. Next attention was turned towards reduction of fracture. Traction was applied. The leg was manipulated to achieve reduction. Excellent reduction was achieved. Fluoroscopy was used to confirm reduction. A three inch incision was made proximal to the trochanter. Subcutaneous tissue was dissected bluntly. Guidepin was placed at the tip of the trochanter and advanced into the femoral canal. Fluoroscopy confirmed appropriate guidepin placement. A opening reamer was placed over the guidepin. A long ball tipped guide pin was now placed down the femoral canal into the center of the distal femur. The nail length was now measured. Fluoroscopy confirmed appropriate guidepin placement. Flexible reamers were now passed over the guidepin to ream the intramedullary canal. The nail was attached to the insertion handle. Nail was now placed over the guidepin into the femoral canal. Fluoroscopy confirmed appropriate nail placement. Cannulas were placed through the insertion handle down to the femur. Guidepin was now placed through the femoral nail into the center of the femoral head. Fluoroscopy confirmed appropriate guidepin placement. Screw length was measured. Cannulated drill was placed over the guidepin. Appropriate length lag screw was now placed. Traction was released and compression was applied. The set screw was now tightened in static mode. Next, using perfect craig technique two distal interlocking screws were placed. Screw holes were predrilled and screw lengths were measured. Final fluoroscopy revealed well aligned fracture with well-placed hardware. Incision was closed with 3-0 Vicryl and darcy. Sterile dressings were applied. Patient was awakened and transferred to recovery room. Dima Story MD Dec 19, 2017 10:21
[2017-12-19] MEDS ORDERED: MORPHINE SULFATE 4 MG/ML INJ IV PUSH PRN (10:30)
[2017-12-19] MEDS ORDERED: diphenhydrAMINE HCL 25 MG CAP PO PRN (10:30)
[2017-12-19] MEDS ORDERED: *morphine SULFATE 4 MG/ML PERIprocedure ONLY ONE (11:05)
[2017-12-19] MEDS: INSULIN ASPART SUPPLEMENTAL SCALE SQ SCH ×3 (11:05→20:06)
[2017-12-19] MEDS: METOPROLOL TARTRATE 50 MG TAB PO SCH ×2 (11:30→20:05)
[2017-12-19] MEDS: DOCUSATE SODIUM 50 MG/SENNA 8.6 MG TAB PO SCH ×2 (11:30→20:05)
[2017-12-19] MEDS: LISINOPRIL 10 MG TAB PO SCH (11:30)
[2017-12-19] MEDS: AMIODARONE 200 MG TAB PO SCH ×2 (11:30→20:05)
[2017-12-19] MEDS ORDERED: STERILE WATER FOR INJECTION 20 ML VIAL IV ONE (12:00)
[2017-12-19] MEDS ORDERED: LABETALOL HCL 100 MG/20 ML VIAL IV ONE (12:00)
[2017-12-19] MEDS ORDERED: PROPOFOL 200 MG/20 ML AMP IV ONE (12:00)
[2017-12-19] MEDS ORDERED: LIDOCAINE HCL 1% PF 5 ML SYRINGE OTHER ONE (12:00)
[2017-12-19] MEDS ORDERED: ERGOCALCIFEROL (VIT D2) 50,000 UNIT CAP PO ONE (12:00)
[2017-12-19] MEDS ORDERED: ESMOLOL HCL 100 MG/10 ML VIAL IV ONE (12:00)
[2017-12-19] MEDS ORDERED: PHENYLEPH/NS 1000 MCG/10 ML SYR IV ONE (12:00)
[2017-12-19] MEDS ORDERED: METOPROLOL TARTRATE 5 MG/5 ML VIAL IV PUSH ONE (12:00)
[2017-12-19] MEDS ORDERED: NEOSTIGMINE 5 MG/5 ML SYRINGE IV PUSH ONE (12:00)
[2017-12-19] MEDS ORDERED: GLYCOPYRROLATE 1 MG/5 ML SYRINGE IV PUSH ONE (12:00)
[2017-12-19] MEDS ORDERED: ROCURONIUM INJ 50 MG/5 ML SYRINGE IV PUSH ONE (12:00)
[2017-12-19] MEDS ORDERED: ONDANSETRON HCL 4 MG/2 ML VIAL IV PUSH ONE (12:00)
[2017-12-19] MEDS: CALCIUM/VITAMIN D 250 MG/125 U TAB PO SCH ×2 (13:00→16:14)
[2017-12-19 13:30] VITALS: BP 139/75; PULSE 61; RESP 17; TEMP 97.8; O2SAT 96
[2017-12-19] MEDS ORDERED: PILL SPLITTER OTHER PRN (13:30)
[2017-12-19] MEDS ORDERED: DO NOT ADM ANY ANTICOAGULANT DRUGS PRN (13:30)
--- NOTE | 2017-12-19 14:29 | HHI.PR ---
Subjective Remarks Follow up for right hip fracture s/p fall. The patient is seen after surgery today. He reports sore throat and rhinitis. He states he had a "head cold" over the past few days prior to his arrival. He states his throat is more sore today following intubation. He denies any fevers/chills, cough, chest pain, or shortness of breath. He denies any hip pain currently. He lives alone but states he has a lot of local friends that check on him. He is agreeable to short term rehab if needed. Objective Vitals Vital Signs Date Time Temp Pulse Resp B/P (MAP) Pulse Ox O2 Delivery O2 Flow Rate FiO2 12/19/17 13:00 79 12 106/59 (75) 100 Nasal Cannula 2 12/19/17 12:00 77 12 129/66 (87) 100 12/19/17 11:45 80 12 144/74 (97) 100 12/19/17 11:30 74 12 156/74 (101) 100 12/19/17 11:15 75 12 158/73 (101) 99 12/19/17 11:00 76 22 171/81 (111) 100 12/19/17 10:45 87 22 142/63 (89) 98 Nasal Cannula 2 12/19/17 10:40 97.5 103 16 197/95 (129) 100 Simple Mask 6 12/19/17 04:22 97.8 106 18 161/82 (108) 96 12/19/17 00:39 12/19/17 00:01 89 18 177/87 (117) 98 Room Air 12/18/17 22:52 97 18 189/98 (128) 98 Room Air 12/18/17 22:03 95 20 198/99 (132) 100 Room Air 12/18/17 20:34 98.1 95 18 217/106 (143) 95 Nasal Cannula 2.00 12/18/17 20:32 96 Nasal Cannula 2.00 I/O 12/18/17 12/18/17 12/18/17 12/19/17 12/19/17 12/19/17 07:00 15:00 23:00 07:00 15:00 23:00 Intake Total 800 ml Output Total 75 ml Balance 725 ml Intake Oral 100 ml Other 700 ml Output Estimated Blood Loss 75 ml # Voids 1 Result Diagram: 12/18/17205212/18/172052 Imaging Last Impressions Hip X-Ray 12/18/172029 Signed Impressions: Service Date/Time: Monday, December 18, 2017 21:01 - CONCLUSION: Acute oblique fracture at the proximal femoral shaft. The patient has surgical screws through the femoral neck from prior ORIF. Wesley Neves MD Femur X-Ray 12/18/172029 Signed Impressions: Service Date/Time: Monday, December 18, 2017 21:03 - CONCLUSION: Acute fracturing of the proximal femoral shaft. Wesley Neves MD Chest X-Ray 12/18/17 0000 Signed Impressions: Service Date/Time: Monday, December 18, 2017 21:46 - CONCLUSION: No acute disease. Wesley Neves MD Objective Remarks GENERAL: Well-developed well-nourished male patient in [facility]. SKIN: Warm and dry. HEENT: Atraumatic. Normocephalic. Pupils equal and round. Mucous membranes pink and moist. NECK: Trachea midline. CARDIOVASCULAR: Regular rate and rhythm. 2/6 systolic murmur noted. RESPIRATORY: No accessory muscle use. Clear to auscultation. Breath sounds equal bilaterally. GASTROINTESTINAL: Abdomen soft, non-tender, nondistended. Hepatic and splenic margins not palpable. MUSCULOSKELETAL: Extremities without clubbing, cyanosis, or edema. No obvious deformities. Right lateral hip and distal femur with surgical dressing, CDI, ice packs in place. 2+ bilateral pedal pulses. NEUROLOGICAL: Awake and alert. No obvious cranial nerve deficits. Motor grossly within normal limits. 5/5 muscle strength in the arms and legs. Normal speech. Hoarse voice. PSYCHIATRIC: Appropriate mood and affect; insight and judgment normal. Medications and IVs Current Medications Medications (Trade) Dose Ordered Sig/Beth Route Start Time Stop Time Status Last Admin Sodium Chloride 1,000 ml @ 100 mls/hr Q10H IV 12/19/17 00:31 12/19/17 11:09 (NS Flush) 2 ml UNSCH PRN IV FLUSH 12/19/17 00:45 (NS Flush) 2 ml BID IV FLUSH 12/19/17 09:00 (Tylenol) 650 mg Q4H PRN PO 12/19/17 00:45 (Zofran Inj) 4 mg Q6H PRN IVP 12/19/17 00:45 (Narcan Inj) 0.4 mg UNSCH PRN IV PUSH 12/19/17 00:45 (Candi-Colace) 1 tab BID PO 12/19/17 09:00 12/19/17 11:30 (Milk Of Magnesia Liq) 30 ml Q12H PRN PO 12/19/17 00:45 (Senokot) 17.2 mg Q12H PRN PO 12/19/17 00:45 (Dulcolax Supp) 10 mg DAILY PRN RECTAL 12/19/17 00:45 (Lactulose Liq) 30 ml DAILY PRN PO 12/19/17 00:45 (D50w (Vial) Inj) 50 ml UNSCH PRN IV PUSH 12/19/17 00:45 (Glucagon Inj) 1 mg UNSCH PRN OTHER 12/19/17 00:45 (NovoLOG SUPPLEMENTAL SCALE) 1 ACHS SLIDING SCALE SQ 12/19/17 08:00 12/19/17 11:05 (Cordarone) 400 mg BID PO 12/19/17 09:00 12/19/17 11:30 (Prinivil) 10 mg DAILY PO 12/19/17 09:00 12/19/17 11:30 (Lopressor) 75 mg BID PO 12/19/17 09:00 12/19/17 11:30 (Lipitor) 80 mg HS PO 12/19/17 21:00 Lactated Ringer's 1,000 ml @ 30 mls/hr Q24H PRN IV 12/19/17 06:15 12/22/17 06:14 12/19/17 07:15 Sodium Chloride 500 ml @ 30 mls/hr [id number] PRN IV 12/19/17 06:15 12/22/17 06:14 (Betadine 5% Antisepsis Kit) 1 applic INGOT PASSER PRN EACH NARE 12/19/17 06:15 12/22/17 06:14 (Chlorhexidine 2% Cloth) 3 pack INGOT PASSER PRN TOPICAL 12/19/17 06:15 12/22/17 06:14 (Lovenox Inj) 30 mg Q24H SQ 12/20/17 10:00 Cefazolin Sodium 1000 mg/Sodium Chloride 100 ml @ 200 mls/hr Q8H IV 12/19/17 17:00 12/20/17 09:29 (Oscal-D 250-125) 250 mg TID PO 12/19/17 13:00 12/19/17 13:00 (Benadryl) 25 mg Q6H PRN PO 12/19/17 10:30 ([place] 7.5-325 Mg) 1 tab Q3H PRN PO 12/19/17 10:30 (Morphine Inj) 3 mg Q3H PRN IV PUSH 12/19/17 10:30 (Vitamin D3) 5,000 units DAILY PO 12/20/17 09:00 Miscellaneous Information ALL NURSING DEPARTME... UNSCH PRN .XX 12/19/17 13:30 12/20/17 13:29 (Pill Splitter) 1 ea UNSCH PRN OTHER 12/19/17 13:30 A/P Assessment and Plan 77-year-old male with a past medical history significant for insulin-dependent diabetes mellitus, coronary artery disease s/p CABG, hypertension and hyperlipidemia presents the emergency department for evaluation of a fall with right hip pain. Right femur fracture: acute, s/p fall -Hip x-ray significant for acute oblique fracture at the proximal femoral shaft -Orthopedic surgery consulted, appreciate assistance -Pain control with [place] prn and IV morphine prn -12/19 S/p Removal deep hardware right hip, right femur intramedullary vickey fixation -Ortho recommending 50% weightbearing to RLE -PT consulted Diabetes mellitus, insulin dependent, uncontrolled: BG elevated to 327 today, likely secondary to missing home doses of Novolin 70/30 -Continue patient Novolin 70/30 30u bid (patient currently unsure if he takes 30 or 40u bid, will restart at lower dose and increase if still uncontrolled) -Monitor accu-checks and cover with SSI -diabetic diet Hypertension/hyperlipidemia/coronary artery disease: chronic, no complaints of chest pain -Holding home aspirin/Plavix for surgery -Continue home medications URI: patient presented with sore throat and rhinitis -sore throat worse post intubation, will give lozenges and lidocaine prn -monitor for improvement DVT Prophylaxis: Lovenox sq (per ortho) Shantal Garcia PA-C Dec 19, 2017 2:29 pm
[2017-12-19] MEDS ORDERED: BENZOCAINE-MENTHOL (SUGAR FREE) 15 MG-3.6 MG LOZENGE BUCCAL ONE (14:30)
[2017-12-19] MEDS ORDERED: LIDOCAINE VISCOUS 2% SOLN 15 ML UDC SWISH-SWAL PRN (14:30)
[2017-12-19] MEDS ORDERED: BENZOCAINE-MENTHOL (SUGAR FREE) 15 MG-3.6 MG LOZENGE BUCCAL PRN (14:30)
--- NOTE | 2017-12-19 15:39 | EKG ---
Date Performed: 12/18/2017 Time Performed: 23:05:28 PTAGE: 77 years EKG: Sinus rhythm Consider INFERIOR MYOCARDIAL INFARCTION - age indeterminate MODERATE T-WAVE ABNORMALITY, CONSIDER LA TERAL ISCHEMIA ABNORMAL ECG NO PREVIOUS TRACING DOCTOR: Parviz Lloyd Interpretating Date/Time 12/19/2017 15:30:08
--- NOTE | 2017-12-19 15:59 | RADRPT ---
EXAM DATE/TIME: 12/19/2017 10:11 [facility] COMPARISON: FEMUR RIGHT (AP & LAT/2VWS), December 18, 2017, 21:03. INDICATIONS : ORIF right hip fracture. MEDICAL HISTORY : Unobtaiable. SURGICAL HISTORY : Unobtainable. ENCOUNTER: Subsequent ACUITY: 2 days PAIN SCORE: Non-responsive. LOCATION: Right femur. FINDINGS: Multiple intraprocedural fluoroscopic images of the right femur and hip demonstrate interval placemen t of compression screw and intramedullary vickey. Hardware appears well-positioned. The right there is i mproved alignment of the oblique proximal femoral metadiaphyseal fracture. CONCLUSION: 1. Status post right femoral ORIF, as above. Evangelista Rios MD on December 19, 2017 at 15:54 Board Certified Radiologist. This report was verified electronically.
[2017-12-19 16:09] VITALS: BP 125/66; PULSE 87; RESP 17; TEMP 97.8; O2SAT 100
[2017-12-19 20:00] VITALS: BP 123/61; PULSE 89; RESP 18; TEMP 98.7; O2SAT 99
[2017-12-19] MEDS: ATORVASTATIN 40 MG TAB PO SCH (20:05)
[2017-12-19] MEDS: FAMOTIDINE 20 MG TAB PO SCH (20:06)
[2017-12-19] MEDS: INSULIN HUMAN NPH/R 70/30 1,000 UNITS/10 ML VIAL SQ SCH (20:06)
[2017-12-20] VITALS: BP 126/59; PULSE 83; RESP 17; TEMP 98.6; O2SAT 99
[2017-12-20] MEDS: ACETAMINOPHEN/HYDROcodone 325 MG/7.5 MG TAB PO PRN ×4 (01:18→21:44)
[2017-12-20 04:00] VITALS: BP 107/55; PULSE 75; RESP 18; TEMP 98; O2SAT 98
[2017-12-20] MEDS: SODIUM CHLOR 0.9% 1000 ML INJ 1,000 ML IV SCH ×2 (06:31→16:31)
--- NOTE | 2017-12-20 06:55 | PD.ORT.PN ---
Subjective Subjective Remarks Resting comfortably with no new complaint Objective Vitals Vital Signs Date Time Temp Pulse Resp B/P (MAP) Pulse Ox O2 Delivery O2 Flow Rate FiO2 12/20/17 04:00 98.0 75 18 107/55 (72) 98 12/20/17 00:00 98.6 83 17 126/59 (81) 99 12/19/17 20:00 98.7 89 18 123/61 (81) 99 12/19/17 16:09 97.8 87 17 125/66 (85) 100 12/19/17 13:55 Nasal Cannula 2.00 12/19/17 13:30 97.8 61 17 139/75 (96) 96 12/19/17 13:00 79 12 106/59 (75) 100 Nasal Cannula 2 12/19/17 12:00 77 12 129/66 (87) 100 12/19/17 11:45 80 12 144/74 (97) 100 12/19/17 11:30 74 12 156/74 (101) 100 12/19/17 11:15 75 12 158/73 (101) 99 12/19/17 11:00 76 22 171/81 (111) 100 12/19/17 10:45 87 22 142/63 (89) 98 Nasal Cannula 2 12/19/17 10:40 97.5 103 16 197/95 (129) 100 Simple Mask 6 I/O 12/19/17 12/19/17 12/19/17 12/20/17 12/20/17 12/20/17 07:00 15:00 23:00 07:00 15:00 23:00 Intake Total 1270 ml 100 ml 1451 ml Output Total 75 ml 325 ml Balance 1195 ml 100 ml 1126 ml Intake Oral 100 ml 240 ml IV Total 470 ml 100 ml 1211 ml Other 700 ml Output Urine Total 325 ml Estimated Blood Loss 75 ml # Voids 1 # Bowel Movements 0 Result Diagram: 12/18/17205212/18/172052 Imaging Last 24 hours Impressions Hip X-Ray 12/18/172029 Signed Impressions: Service Date/Time: Monday, December 18, 2017 21:01 - CONCLUSION: Acute oblique fracture at the proximal femoral shaft. The patient has surgical screws through the femoral neck from prior ORIF. Wesley Neves MD Femur X-Ray 12/18/172029 Signed Impressions: Service Date/Time: Monday, December 18, 2017 21:03 - CONCLUSION: Acute fracturing of the proximal femoral shaft. Wesley Neves MD Objective Remarks Bilateral extremities: No pain with range of motion shoulder elbow or wrist. Neurovascular intact distally Left lower extremity: Full range of motion neurovascularly intact Right lower extremity: Clean dry dressings intact. Mild swelling. Distally intact sensation with good capillary refills. Active dorsiflexion and plantar flexion of foot Assessment & Plan Assessment and Plan Right intertrochanteric femur fracture with removal of hardware and intramedullary nail fixation POD 1 Physical therapy: 50% weightbearing right lower extremity Begin daily dressing changes POD 2 Lovenox Incentive spirometry Case management for rehab placement Follow-up with Dr. Velazquez or PA in 2 weeks Reynaldo Ken Jr. Dec 20, 2017 06:55
[2017-12-20 07:49] VITALS: BP 110/54; PULSE 71; RESP 18; TEMP 98.5; O2SAT 98
[2017-12-20] MEDS: METOPROLOL TARTRATE 50 MG TAB PO SCH ×2 (09:00→21:44)
[2017-12-20] MEDS: INSULIN ASPART SUPPLEMENTAL SCALE SQ SCH ×4 (09:01→21:43)
[2017-12-20] MEDS: LISINOPRIL 10 MG TAB PO SCH (09:02)
[2017-12-20] MEDS: CALCIUM/VITAMIN D 250 MG/125 U TAB PO SCH ×3 (09:02→16:35)
[2017-12-20] MEDS: CHOLECALCIFEROL (VIT D3) 5000 UNIT CAP PO SCH (09:02)
[2017-12-20] MEDS: FAMOTIDINE 20 MG TAB PO SCH ×2 (09:02→21:42)
[2017-12-20] MEDS: DOCUSATE SODIUM 50 MG/SENNA 8.6 MG TAB PO SCH ×2 (09:02→21:42)
[2017-12-20] MEDS: INSULIN HUMAN NPH/R 70/30 1,000 UNITS/10 ML VIAL SQ SCH ×2 (09:02→21:43)
[2017-12-20] MEDS: AMIODARONE 200 MG TAB PO SCH ×2 (09:03→21:42)
[2017-12-20] MEDS: ENOXAPARIN SODIUM 30 MG/0.3 ML SYRINGE SQ SCH (09:03)
[2017-12-20] MEDS: SODIUM CHLORIDE 0.9% FLUSH 10 ML FLUSH IV FLUSH SCH ×2 (09:04→21:42)
[2017-12-20 09:43] LABS: AUTOMATED NEUTROPHIL # 5.5 TH/MM3 (1.8-7.7); BASOPHIL % 0.6 % (0.0-2.0); EOSINOPHIL # 0.3 TH/MM3 (0-0.4); HEMATOCRIT 24.8 % (39.0-51.0); HEMOGLOBIN 8.9 GM/DL (13.0-17.0); LYMPH % 10.4 % (9.0-44.0); LYMPHOCYTE # 0.8 TH/MM3 (1.0-4.8); MEAN CELL VOLUME 100.1 FL (80.0-100.0); MEAN CORPUSCULAR HEMOGLOBIN 35.9 PG (27.0-34.0); MEAN CORPUSCULAR HGB CONC 35.9 % (32.0-36.0); MEAN PLATELET VOLUME 8.8 FL (7.0-11.0); MONO % 13.5 % (0.0-8.0); NEUT % 71.5 % (16.0-70.0); PLATELET COUNT 179 TH/MM3 (150-450); RED BLOOD COUNT 2.48 MIL/MM3 (4.50-5.90); RED CELL DISTRIBUTION WIDTH 14.4 % (11.6-17.2); WHITE BLOOD COUNT 7.7 TH/MM3 (4.0-11.0)
[2017-12-20 10:30] LABS: BICARBONATE 26.7 MEQ/L (21.0-32.0); CALCIUM 8.1 MG/DL (8.5-10.1); CREATININE 1.49 MG/DL (0.60-1.30)
--- NOTE | 2017-12-20 11:31 | HHI.PR ---
Subjective Remarks 77-year-old male with a past medical history significant for insulin-dependent diabetes mellitus, coronary artery disease, hypertension and hyperlipidemia presents the emergency department for evaluation of a fall. The patient reports that he was placed taking out the trash when he lost his footing and fell backwards. He states he then twisted to the right following on his right hip. He is denies any loss of consciousness. He denies any other injuries. Complains of right lower extremity pain. No chest pain or shortness of breath. No abdominal pain. No nausea/vomiting/diarrhea. No weakness/fatigue. 12-19 Follow up for right hip fracture s/p fall. The patient is seen after surgery today. He reports sore throat and rhinitis. He states he had a "head cold" over the past few days prior to his arrival. He states his throat is more sore today following intubation. He denies any fevers/chills, cough, chest pain , or shortness of breath. He denies any hip pain currently. He lives alone but states he has a lot of local friends that check on him. He is agreeable to short term rehab if needed. 12-20 HAS HAD SURGERY WORKING WITH PT AND OT HAS [employer] AND [employer] BENEFITS DW RN AND PT AND CM WILL NEED SNF PROBABLY Objective Vitals Vital Signs Date Time Temp Pulse Resp B/P (MAP) Pulse Ox O2 Delivery O2 Flow Rate FiO2 12/20/17 07:49 98.5 71 18 110/54 (72) 98 12/20/17 04:00 98.0 75 18 107/55 (72) 98 12/20/17 00:00 98.6 83 17 126/59 (81) 99 12/19/17 22:00 Nasal Cannula 12/19/17 20:00 98.7 89 18 123/61 (81) 99 12/19/17 16:09 97.8 87 17 125/66 (85) 100 12/19/17 13:55 Nasal Cannula 2.00 12/19/17 13:30 97.8 61 17 139/75 (96) 96 12/19/17 13:00 79 12 106/59 (75) 100 Nasal Cannula 2 12/19/17 12:00 77 12 129/66 (87) 100 12/19/17 11:45 80 12 144/74 (97) 100 12/19/17 11:30 74 12 156/74 (101) 100 I/O 12/19/17 12/19/17 12/19/17 12/20/17 12/20/17 12/20/17 07:00 15:00 23:00 07:00 15:00 23:00 Intake Total 1270 ml 100 ml 1451 ml 163 ml Output Total 75 ml 325 ml Balance 1195 ml 100 ml 1126 ml 163 ml Intake Oral 100 ml 240 ml IV Total 470 ml 100 ml 1211 ml 163 ml Other 700 ml Output Urine Total 325 ml Estimated Blood Loss 75 ml # Voids 1 # Bowel Movements 0 Result Diagram: 12/20/17 0830 12/20/17 0830 Other Results Laboratory Tests Test 12/18/17 20:53 12/18/17 22:46 12/20/17 08:30 White Blood Count 8.7 TH/MM3 7.7 TH/MM3 Red Blood Count 3.94 MIL/MM3 2.48 MIL/MM3 Hemoglobin 13.6 GM/DL 8.9 GM/DL Hematocrit 38.7 % 24.8 % Mean Corpuscular Volume 98.2 FL 100.1 FL Mean Corpuscular Hemoglobin 34.5 PG 35.9 PG Mean Corpuscular Hemoglobin Concent 35.2 % 35.9 % Red Cell Distribution Width 14.0 % 14.4 % Platelet Count 194 TH/MM3 179 TH/MM3 Mean Platelet Volume 8.9 FL 8.8 FL Neutrophils (%) (Auto) 70.7 % 71.5 % Lymphocytes (%) (Auto) 16.0 % 10.4 % Monocytes (%) (Auto) 8.6 % 13.5 % Eosinophils (%) (Auto) 3.9 % 4.0 % Basophils (%) (Auto) 0.8 % 0.6 % Neutrophils # (Auto) 6.1 TH/MM3 5.5 TH/MM3 Lymphocytes # (Auto) 1.4 TH/MM3 0.8 TH/MM3 Monocytes # (Auto) 0.8 TH/MM3 1.0 TH/MM3 Eosinophils # (Auto) 0.3 TH/MM3 0.3 TH/MM3 Basophils # (Auto) 0.1 TH/MM3 0.0 TH/MM3 CBC Comment DIFF FINAL DIFF FINAL Differential Comment Prothrombin Time 9.5 SEC Prothromb Time International Ratio 0.9 RATIO Activated Partial Thromboplast Time 22.9 SEC Blood Urea Nitrogen 18 MG/DL 30 MG/DL Creatinine 1.24 MG/DL 1.49 MG/DL Random Glucose 248 MG/DL 158 MG/DL Calcium Level 7.5 MG/DL 8.1 MG/DL Magnesium Level 1.5 MG/DL Sodium Level 138 MEQ/L 143 MEQ/L Potassium Level 4.8 MEQ/L 4.0 MEQ/L Chloride Level 109 MEQ/L 110 MEQ/L Carbon Dioxide Level 19.1 MEQ/L 26.7 MEQ/L Anion Gap 10 MEQ/L 6 MEQ/L Estimat Glomerular Filtration Rate 57 ML/MIN 46 ML/MIN Urine Color YELLOW Urine Turbidity CLEAR Urine pH 7.0 Urine Specific [place] 1.011 Urine Protein 100 mg/dL Urine Glucose (UA) 1000 mg/dL Urine Ketones TRACE mg/dL Urine Occult Blood TRACE Urine Nitrite NEG Urine Bilirubin NEG Urine Urobilinogen LESS THAN 2.0 MG/DL Urine Leukocyte Esterase NEG Urine RBC 1 /hpf Urine WBC 1 /hpf Urine Squamous Epithelial Cells <1 /hpf Microscopic Urinalysis Comment CULT NOT INDICATED 25-Hydroxy Vitamin D Total 16.0 ng/ML Imaging Last Impressions Femur X-Ray 12/19/17 0000 Signed Impressions: Service Date/Time: Tuesday, December 19, 2017 10:11 - CONCLUSION: 1. Status post right femoral ORIF, as above. Evangelista Rios MD Hip X-Ray 12/18/172029 Signed Impressions: Service Date/Time: Monday, December 18, 2017 21:01 - CONCLUSION: Acute oblique fracture at the proximal femoral shaft. The patient has surgical screws through the femoral neck from prior ORIF. Wesley Neves MD Chest X-Ray 12/18/17 Signed Impressions: Service Date/Time: Monday, December 18, 2017 21:46 - CONCLUSION: No acute disease. Wesley Neves MD Objective Remarks GENERAL: Awake alert and oriented 3 talkative and cooperative SKIN: Warm and dry. Right leg is dressed HEAD: Atraumatic. Normocephalic. EYES: Pupils equal and round. No scleral icterus. No injection or drainage. Extraocular muscles intact ENT: No nasal bleeding or discharge. Mucous membranes pink and moist. Tongue is midline NECK: Trachea midline. No JVD. Supple CARDIOVASCULAR: Regular rate and rhythm. S1-S2 no S3 or S4 RESPIRATORY: No accessory muscle use. Clear to auscultation. Breath sounds equal bilaterally. GASTROINTESTINAL: Abdomen soft, non-tender, nondistended. Hepatic and splenic margins not palpable. MUSCULOSKELETAL: Extremities without clubbing, cyanosis, or edema. No obvious deformities. NEUROLOGICAL: Awake and alert. No obvious cranial nerve deficits. Motor grossly within normal limits. 4 out of 5 muscle strength in the arms and legs. Normal speech. Right leg is dressed PSYCHIATRIC: Appropriate mood and affect; insight and judgment normal. Procedures Date of Surgery: Dec 19, 2017 Preoperative Diagnosis: Displaced right subtrochanteric femur fracture, retained hardware right hip Postoperative Diagnosis: Procedure: Removal deep hardware right hip, right femur intramedullary vickey fixation Anesthesia: General Surgeon: Dima Velazquez Roofing Supervisor(s): CY Whitney PA-C The surgical procedure was assisted by my physician television production assistant. My P.A. presence was necessary throughout this case for the manipulation and positioning of the surgical extremity. My P.A. was assisting me throughout the duration of this procedure. The skill set of a physician television production assistant was medically necessary to complete this procedure. During the surgical case the rn neurosurgical was working at the back table and the physician television production assistant was directly assisting me. Operation and Findings: Implants used: [11]mm x [380]mm Synthes 130 troch nail Plan of activity: 50% weight right leg Patient was seen and evaluated preoperatively. The patient has significant hip pain from proximal femur fracture. The risk and benefits of surgery were discussed in depth with the patient to include bleeding, infection, nonunion, malunion, need for hip replacement, painful hardware, as well as medical competitions including blood clots, stroke, heart attack, and . Informed consent was obtained. Operative site was marked. Patient was brought to the operating room and placed on fracture table. IV sedation was administered by anesthesiologist. Timeout procedure was performed. Hip and leg were prepped with alcohol followed by DuraPrep and draped in the usual sterile fashion. IV antibiotics were given prior to incision. Procedure began with removal of deep hardware. A 2 inch incision was made over the lateral aspect of the trochanter. Fluoroscopy was used to identify the location of the 3 screws. Iliotibial band was split with Bovie. The screw heads were now identified. Using the appropriate screwdriver, each of the screws was removed. Fluoroscopy confirmed removal of appropriate hardware. Next attention was turned towards reduction of fracture. Traction was applied. The leg was manipulated to achieve reduction. Excellent reduction was achieved. Fluoroscopy was used to confirm reduction. A three inch incision was made proximal to the trochanter. Subcutaneous tissue was dissected bluntly. Guidepin was placed at the tip of the trochanter and advanced into the femoral canal. Fluoroscopy confirmed appropriate guidepin placement. A opening reamer was placed over the guidepin. A long ball tipped guide pin was now placed down the femoral canal into the center of the distal femur. The nail length was now measured. Fluoroscopy confirmed appropriate guidepin placement. Flexible reamers were now passed over the guidepin to ream the intramedullary canal. The nail was attached to the insertion handle. Nail was now placed over the guidepin into the femoral canal. Fluoroscopy confirmed appropriate nail placement. Cannulas were placed through the insertion handle down to the femur. Guidepin was now placed through the femoral nail into the center of the femoral head. Fluoroscopy confirmed appropriate guidepin placement. Screw length was measured. Cannulated drill was placed over the guidepin. Appropriate length lag screw was now placed. Traction was released and compression was applied. The set screw was now tightened in static mode. Next, using perfect [place] technique two distal interlocking screws were placed. Screw holes were predrilled and screw lengths were measured. Final fluoroscopy revealed well aligned fracture with well-placed hardware. Incision was closed with 3-0 Vicryl and darcy. Sterile dressings were applied. Patient was awakened and transferred to recovery room. Dima Velazquez MD Medications and IVs Current Medications Hydromorphone HCl (Dilaudid Pf Inj) 1 mg ONCE ONCE IV PUSH Last administered on 12/18/17at 22:03; Start 12/18/17 at 21:45; Stop 12/18/17 at 21:46; Status DC Ondansetron HCl (Zofran Inj) 4 mg ONCE ONCE IV PUSH Last administered on at 22:03; Start 12/18/17 at 21:45; Stop 12/18/17 at 21:46; Status DC Hydromorphone HCl (Dilaudid Pf Inj) 1 mg Q4H PRN IV PUSH pain 6-10 Last administered on 12/19/17at 05:04; Start 12/19/17 at 00:45; Stop 12/19/17 at 12:59 ; Status DC Sodium Chloride 1,000 ml @ 100 mls/hr Q10H IV Last administered on 12/20/17at 06:31; Start 12/19/17 at 00:31 Sodium Chloride (NS Flush) 2 ml UNSCH PRN IV FLUSH FLUSH AFTER USING IV ACCESS ; Start 12/19/17 at 00:45 Sodium Chloride (NS Flush) 2 ml BID IV FLUSH Last administered on 12/20/17at 09: 04; Start 12/19/17 at 09:00 Acetaminophen (Tylenol) 650 mg Q4H PRN PO TEMP > 100.4; Start 12/19/17 at 00:45 Ondansetron HCl (Zofran Inj) 4 mg Q6H PRN IVP NAUSEA OR VOMITING; Start at 00:45 Naloxone HCl (Narcan Inj) 0.4 mg UNSCH PRN IV PUSH SEE LABEL COMMENTS; Start at 00:45 Senna/Docusate Sodium (Candi-Colace) 1 tab BID PO Last administered on at 09:02; Start 12/19/17 at 09:00 Magnesium Hydroxide (Milk Of Magnesia Liq) 30 ml Q12H PRN PO Mild constipation ; Start 12/19/17 at 00:45 Sennosides (Senokot) 17.2 mg Q12H PRN PO Moderate constipation; Start 12/19/17 at 00:45 Bisacodyl (Dulcolax Supp) 10 mg DAILY PRN RECTAL SEVERE CONSITIPATION/ IF NPO ; Start 12/19/17 at 00:45 Lactulose (Lactulose Liq) 30 ml DAILY PRN PO SEVERE CONSITIPATION/ IF PO; Start 12/19/17 at 00:45 Dextrose (D50w (Vial) Inj) 50 ml UNSCH PRN IV PUSH HYPOGLYCEMIA-SEE COMMENTS; Start 12/19/17 at 00:45 Glucagon (Glucagon Inj) 1 mg UNSCH PRN OTHER HYPOGLYCEMIA-SEE COMMENTS; Start 12/19/17 at 00:45 Insulin Aspart (NovoLOG SUPPLEMENTAL SCALE) 1 ACHS SLIDING SCALE SQ Last administered on 12/20/17at 09:01; Start 12/19/17 at 08:00 Amiodarone HCl (Cordarone) 400 mg BID PO Last administered on 12/20/17at 09:03; Start 12/19/17 at 09:00 Lisinopril (Prinivil) 10 mg DAILY PO Last administered on 12/20/17at 09:02; Start 12/19/17 at 09:00 Metoprolol Tartrate (Lopressor) 75 mg BID PO Last administered on 12/20/17at 09: 00; Start 12/19/17 at 09:00 Atorvastatin Calcium (Lipitor) 80 mg HS PO Last administered on 12/19/17at 20:05 ; Start 12/19/17 at 21:00 Lactated Ringer's 1,000 ml @ 30 mls/hr Q24H PRN IV SEE LABEL COMMENTS Last administered on 12/19/17at 07:15; Start 12/19/17 at 06:15; Stop 12/22/17 at 06:14 Sodium Chloride 500 ml @ 30 mls/hr [id number] PRN IV SEE LABEL COMMENTS; Start at 06:15; Stop 12/22/17 at 06:14 Povidone Iodine (Betadine 5% Antisepsis Kit) 1 applic BRUSHER AND SHEARER PRN EACH NARE SEE LABEL COMMENTS; Start 12/19/17 at 06:15; Stop 12/22/17 at 06:14 Chlorhexidine Gluconate (Chlorhexidine 2% Cloth) 3 pack BRUSHER AND SHEARER PRN TOPICAL SEE LABEL COMMENTS; Start 12/19/17 at 06:15; Stop 12/22/17 at 06:14 Vancomycin HCl (Vancomycin Inj) 1,000 mg STK-MED ONCE .ROUTE Last administered on 12/19/17at 09:30; Start 12/19/17 at 07:15; Stop 12/19/17 at 07:16; Status DC Cefazolin Sodium (Ancef Inj) 3,000 mg STK-MED ONCE .ROUTE Last administered on 12/19/17at 09:06; Start 12/19/17 at 07:15; Stop 12/19/17 at 07:16; Status DC Gentamicin Sulfate (Gentamicin Inj) 240 mg STK-MED ONCE .ROUTE Last administered on 12/19/17at 09:30; Start 12/19/17 at 07:15; Stop 12/19/17 at 07:16 ; Status DC Sodium Chloride 250 ml @ As Directed STK-MED ONCE .ROUTE Last administered on 12/19/17at 09:30; Start 12/19/17 at 07:16; Stop 12/19/17 at 07:17; Status DC Enoxaparin Sodium (Lovenox Inj) 30 mg Q24H SQ Last administered on 12/20/17at 09 :03; Start 12/20/17 at 10:00 Cefazolin Sodium 1000 mg/Sodium Chloride 100 ml @ 200 mls/hr Q8H IV Last administered on 12/20/17at 08:59; Start 12/19/17 at 17:00; Stop 12/20/17 at 09:29 ; Status DC Calcium/Vitamin D (Oscal-D 250-125) 250 mg TID PO Last administered on at 09:02; Start 12/19/17 at 13:00 Diphenhydramine HCl (Benadryl) 25 mg Q6H PRN PO ITCHING; Start 12/19/17 at 10: 30 Acetaminophen/ Hydrocodone Bitart ([place] 7.5-325 Mg) 1 tab Q3H PRN PO pain 3- 10 Last administered on 12/20/17at 09:06; Start 12/19/17 at 10:30 Morphine Sulfate (Morphine Inj) 3 mg Q3H PRN IV PUSH break thru pain; Start at 10:30 Cholecalciferol (Vitamin D3) 5,000 units DAILY PO Last administered on at 09:02; Start 12/20/17 at 09:00 Ergocalciferol (Drisdol) 50,000 units ONCE ONCE PO Last administered on at 12:00; Start 12/19/17 at 12:00; Stop 12/19/17 at 12:01; Status DC Fentanyl Citrate (fentaNYL INJ) 200 mcg STK-MED ONCE .ROUTE ; Start 12/19/17 at 11:02; Stop 12/19/17 at 11:03; Status DC Morphine Sulfate (*morphine INJ PERIprocedure ONLY) 4 mg STK-MED ONCE .ROUTE Last administered on 12/19/17at 11:06; Start 12/19/17 at 11:05; Stop 12/19/17 at 11:06; Status DC Miscellaneous Information ALL NURSING DEPARTME... UNSCH PRN .XX SEE LABEL COMMENTS; Start 12/19/17 at 13:30; Stop 12/20/17 at 13:29 Miscellaneous (Pill Splitter) 1 ea UNSCH PRN OTHER SEE LABEL COMMENTS; Start at 13:30 Insulin Human Isoph/Insulin Regular (NovoLIN 70/30 INJ) 30 units BID SQ Last administered on 12/20/17at 09:02; Start 12/19/17 at 21:00 Famotidine (Pepcid) 20 mg BID PO Last administered on 12/20/17at 09:02; Start at 21:00 Benzocaine/Menthol (Cepacol Extra Arielle (Sugar Free)) 1 lozenge ONCE ONCE BUCCAL Last administered on 12/19/17at 14:30; Start 12/19/17 at 14:30; Stop 12/19/17 at 14:33; Status DC Benzocaine/Menthol (Cepacol Extra Arielle (Sugar Free)) 1 lozenge Q2HR PRN BUCCAL sore throat Last administered on 12/19/17at 16:19; Start 12/19/17 at 14:30 Lidocaine HCl (Xylocaine 2% Viscous) 15 ml Q6H PRN SWISH-SWAL sore throat; Start 12/19/17 at 14:30 Lidocaine HCl (Xylocaine-Mpf 1% Inj) 5 ml STK-MED ONCE OTHER ; Start 12/19/17 at 12:00; Stop 12/20/17 at 11:17; Status DC Rocuronium [place] (Zemuron Inj) 50 mg STK-MED ONCE IV PUSH ; Start 12/19/17 at 12:00; Stop 12/20/17 at 11:17; Status DC Neostigmine Methylsulfate (Prostigmine Inj) 5 mg STK-MED ONCE IV PUSH ; Start at 12:00; Stop 12/20/17 at 11:17; Status DC Glycopyrrolate (Robinul Inj) 1 mg STK-MED ONCE IV PUSH ; Start 12/19/17 at 12:00 ; Stop 12/20/17 at 11:17; Status DC Phenylephrine HCl (Neosynephrine/ NS 1000 Mcg/10ml Syr) 1,000 mcg STK-MED ONCE IV ; Start 12/19/17 at 12:00; Stop 12/20/17 at 11:17; Status DC Metoprolol Tartrate (Lopressor Inj) 5 mg STK-MED ONCE IV PUSH ; Start 12/19/17 at 12:00; Stop 12/20/17 at 11:17; Status DC Esmolol HCl (Brevibloc Bolus Inj) 100 mg STK-MED ONCE IV ; Start 12/19/17 at 12: 00; Stop 12/20/17 at 11:17; Status DC Ondansetron HCl (Zofran Inj) 4 mg STK-MED ONCE IV PUSH ; Start 12/19/17 at 12:00 ; Stop 12/20/17 at 11:17; Status DC Propofol (Diprivan 200 Mg/20 ml Inj) 200 mg STK-MED ONCE IV ; Start 12/19/17 at 12:00; Stop 12/20/17 at 11:17; Status DC Sterile Water (Sterile Water For Injection) 20 ml STK-MED ONCE IV ; Start at 12:00; Stop 12/20/17 at 11:17; Status DC Labetalol HCl (Trandate Inj) 100 mg STK-MED ONCE IV ; Start 12/19/17 at 12:00; Stop 12/20/17 at 11:17; Status DC A/P Assessment and Plan 77-year-old male with a past medical history significant for insulin-dependent diabetes mellitus, coronary artery disease s/p CABG, hypertension and hyperlipidemia presents the emergency department for evaluation of a fall with right hip pain. Right femur fracture: acute, s/p fall -Hip x-ray significant for acute oblique fracture at the proximal femoral shaft -Orthopedic surgery consulted, appreciate assistance -Pain control with [place] prn and IV morphine prn -12/19 S/p Removal deep hardware right hip, right femur intramedullary vickey fixation -Ortho recommending 50% weightbearing to RLE -PT consulted Diabetes mellitus, insulin dependent, uncontrolled: BG elevated to 327 today, likely secondary to missing home doses of Novolin 70/30 -Continue patient Novolin 70/30 30u bid (patient currently unsure if he takes 30 or 40u bid, will restart at lower dose and increase if still uncontrolled) -Monitor accu-checks and cover with SSI -diabetic diet Hypertension/hyperlipidemia/coronary artery disease: chronic, no complaints of chest pain -Holding home aspirin/Plavix for surgery -Continue home medications URI: patient presented with sore throat and rhinitis -sore throat worse post intubation, will give lozenges and lidocaine prn -monitor for improvement Renal insufficiency/chronic kidney disease stage II-III A.m. labs DVT Prophylaxis: Lovenox sq (per ortho) Physical therapy and Occupational Therapy Discharge Planning PENDING ORTHO AND INSURANCE CLEARANCE [facility] Truong Roldan DO Dec 20, 2017 11:31
[2017-12-20 12:00] VITALS: BP 114/65; PULSE 75; RESP 18; TEMP 98.4; O2SAT 97
[2017-12-20 16:00] VITALS: BP 102/51; PULSE 88; RESP 18; TEMP 98.5; O2SAT 94
[2017-12-20 20:00] VITALS: BP 122/60; PULSE 79; RESP 18; TEMP 98.4; O2SAT 96
[2017-12-20] MEDS: ATORVASTATIN 40 MG TAB PO SCH (21:44)
[2017-12-21] VITALS: BP 123/62; PULSE 78; RESP 18; TEMP 98.6; O2SAT 97
[2017-12-21] MEDS: SODIUM CHLOR 0.9% 1000 ML INJ 1,000 ML IV SCH ×2 (02:31→12:07)
--- NOTE | 2017-12-21 06:33 | PD.ORT.PN ---
Subjective Subjective Remarks Resting comfortably with no new complaint Objective Vitals Vital Signs Date Time Temp Pulse Resp B/P (MAP) Pulse Ox O2 Delivery O2 Flow Rate FiO2 12/21/17 00:00 98.6 78 18 123/62 (82) 97 12/20/17 20:10 96 Room Air 12/20/17 20:00 98.4 79 18 122/60 (80) 96 12/20/17 16:00 98.5 88 18 102/51 (68) 94 12/20/17 12:00 98.4 75 18 114/65 (81) 97 12/20/17 07:49 98.5 71 18 110/54 (72) 98 I/O 12/20/17 12/20/17 12/20/17 12/21/17 12/21/17 12/21/17 07:00 15:00 23:00 07:00 15:00 23:00 Intake Total 1451 ml 739 ml 720 ml Output Total 325 ml 100 ml Balance 1126 ml 739 ml 620 ml Intake Oral 240 ml 720 ml IV Total 1211 ml 739 ml Output Urine Total 325 ml 100 ml # Voids 4 # Bowel Movements 0 0 Result Diagram: 12/20/17 0830 12/20/17 0830 Imaging Last 24 hours Impressions Hip X-Ray 12/18/172029 Signed Impressions: Service Date/Time: Monday, December 18, 2017 21:01 - CONCLUSION: Acute oblique fracture at the proximal femoral shaft. The patient has surgical screws through the femoral neck from prior ORIF. Wesley Neves MD Femur X-Ray 12/18/172029 Signed Impressions: Service Date/Time: Monday, December 18, 2017 21:03 - CONCLUSION: Acute fracturing of the proximal femoral shaft. Wesley Neves MD Objective Remarks Bilateral extremities: No pain with range of motion shoulder elbow or wrist. Neurovascular intact distally Left lower extremity: Full range of motion neurovascularly intact Right lower extremity: Clean dry dressings intact. Mild swelling. Distally intact sensation with good capillary refills. Active dorsiflexion and plantar flexion of foot Assessment & Plan Assessment and Plan Right intertrochanteric femur fracture with removal of hardware and intramedullary nail fixation POD 2 Physical therapy: 50% weightbearing right lower extremity Begin daily dressing changes Lovenox Incentive spirometry Case management for rehab placement Follow-up with Dr. Velazquez or PA in 2 weeks Reynaldo Ken Jr. Dec 21, 2017 06:33
[2017-12-21 06:44] LABS: AUTOMATED NEUTROPHIL # 6.2 TH/MM3 (1.8-7.7); BASOPHIL % 0.4 % (0.0-2.0); EOSINOPHIL # 0.3 TH/MM3 (0-0.4); EOSINOPHIL % 3.9 % (0.0-4.0); HEMATOCRIT 25.2 % (39.0-51.0); HEMOGLOBIN 8.7 GM/DL (13.0-17.0); LYMPH % 11.6 % (9.0-44.0); MEAN CELL VOLUME 100.5 FL (80.0-100.0); MEAN CORPUSCULAR HEMOGLOBIN 34.6 PG (27.0-34.0); MEAN CORPUSCULAR HGB CONC 34.4 % (32.0-36.0); MEAN PLATELET VOLUME 8.6 FL (7.0-11.0); MONO % 13.4 % (0.0-8.0); MONOCYTE # 1.2 TH/MM3 (0-0.9); NEUT % 70.7 % (16.0-70.0); PLATELET COUNT 205 TH/MM3 (150-450); RED BLOOD COUNT 2.51 MIL/MM3 (4.50-5.90); RED CELL DISTRIBUTION WIDTH 14.3 % (11.6-17.2); WHITE BLOOD COUNT 8.7 TH/MM3 (4.0-11.0)
[2017-12-21 07:23] LABS: ALBUMIN 2.5 GM/DL (3.4-5.0); AST (GOT) 29 U/L (15-37); BICARBONATE 27.5 MEQ/L (21.0-32.0); BLOOD UREA NITROGEN 32 MG/DL (7-18); CALCIUM 8.9 MG/DL (8.5-10.1); CHLORIDE 112 MEQ/L (98-107); CREATININE 1.42 MG/DL (0.60-1.30); GLOMERULAR FILTRATION RATE 48 ML/MIN (>89); GLUCOSE,RANDOM 161 MG/DL (74-106); MAGNESIUM 2.3 MG/DL (1.5-2.5); SODIUM (NA) 145 MEQ/L (136-145)
[2017-12-21 07:30] LABS: ALKALINE PHOSPHATASE 91 U/L (45-117); ALT (GPT) 18 U/L (12-78); FREE T4 1.31 NG/DL (0.76-1.46); PHOSPHORUS 2.5 MG/DL (2.5-4.9); TOTAL BILIRUBIN ADULT 0.4 MG/DL (0.2-1.0); TOTAL PROTEIN 5.8 GM/DL (6.4-8.2)
[2017-12-21 08:00] VITALS: BP 119/58; PULSE 79; RESP 18; TEMP 98; O2SAT 95
[2017-12-21] MEDS: INSULIN ASPART SUPPLEMENTAL SCALE SQ SCH ×4 (08:00→21:13)
[2017-12-21] MEDS: CHOLECALCIFEROL (VIT D3) 5000 UNIT CAP PO SCH (08:22)
[2017-12-21] MEDS: DOCUSATE SODIUM 50 MG/SENNA 8.6 MG TAB PO SCH ×2 (08:22→21:09)
[2017-12-21] MEDS: CALCIUM/VITAMIN D 250 MG/125 U TAB PO SCH ×3 (08:22→17:13)
[2017-12-21] MEDS: METOPROLOL TARTRATE 50 MG TAB PO SCH ×2 (08:22→21:08)
[2017-12-21] MEDS: AMIODARONE 200 MG TAB PO SCH ×2 (08:22→21:11)
[2017-12-21] MEDS: FAMOTIDINE 20 MG TAB PO SCH ×2 (08:22→21:10)
[2017-12-21] MEDS: SODIUM CHLORIDE 0.9% FLUSH 10 ML FLUSH IV FLUSH SCH (08:23)
[2017-12-21] MEDS: LISINOPRIL 10 MG TAB PO SCH (08:23)
[2017-12-21] MEDS: INSULIN HUMAN NPH/R 70/30 1,000 UNITS/10 ML VIAL SQ SCH ×2 (08:23→21:12)
[2017-12-21] MEDS: ENOXAPARIN SODIUM 30 MG/0.3 ML SYRINGE SQ SCH (10:17)
[2017-12-21 11:55] VITALS: BP 142/66; PULSE 81; RESP 18; TEMP 97.8; O2SAT 96
--- NOTE | 2017-12-21 11:57 | HHI.PR ---
Subjective Remarks Patient sitting in chair. States the pain med could be better. Complaining of spongy, left heel pain 6/10, worse when he walks. Objective Vitals Vital Signs Date Time Temp Pulse Resp B/P (MAP) Pulse Ox O2 Delivery O2 Flow Rate FiO2 12/21/17 11:55 97.8 81 18 142/66 (91) 96 12/21/17 08:00 98.0 79 18 119/58 (78) 95 12/21/17 08:00 95 Room Air 12/21/17 00:00 98.6 78 18 123/62 (82) 97 12/20/17 20:10 96 Room Air 12/20/17 20:00 98.4 79 18 122/60 (80) 96 12/20/17 16:00 98.5 88 18 102/51 (68) 94 12/20/17 12:00 98.4 75 18 114/65 (81) 97 I/O 12/20/17 12/20/17 12/20/17 12/21/17 12/21/17 12/21/17 07:00 15:00 23:00 07:00 15:00 23:00 Intake Total 1451 ml 739 ml 720 ml 240 ml Output Total 325 ml 100 ml 575 ml 150 ml Balance 1126 ml 739 ml 620 ml -335 ml -150 ml Intake Oral 240 ml 720 ml 240 ml IV Total 1211 ml 739 ml Output Urine Total 325 ml 100 ml 575 ml 150 ml # Voids 4 # Bowel Movements 0 0 0 Result Diagram: 12/21/1752912/21/17529 Objective Remarks GENERAL: SKIN: Warm and dry. Dressings dry and intact HEAD: Atraumatic. Normocephalic. EYES: Pupils equal and round. No scleral icterus. No injection or drainage. ENT: No nasal bleeding or discharge. Mucous membranes pink and moist. NECK: Trachea midline. No JVD. CARDIOVASCULAR: Regular rate and rhythm. RESPIRATORY: No accessory muscle use. Clear to auscultation. Breath sounds equal bilaterally. GASTROINTESTINAL: Abdomen soft, non-tender, nondistended. Hepatic and splenic margins not palpable. MUSCULOSKELETAL: Extremities without clubbing, cyanosis, or edema. No obvious deformities. NEUROLOGICAL: Awake and alert. No obvious cranial nerve deficits. Motor grossly within normal limits. Minimal range of motion to right lower extremity , left heel pain normal speech. PSYCHIATRIC: Appropriate mood and affect; insight and judgment normal. Procedures Date of Surgery: Dec 19, 2017 Preoperative Diagnosis: Displaced right subtrochanteric femur fracture, retained hardware right hip Postoperative Diagnosis: Procedure: Removal deep hardware right hip, right femur intramedullary vickey fixation Anesthesia: General Surgeon: Dima Story Marketing Outreach Coordinator(s): CY Whitney PA-C The surgical procedure was assisted by my physician early childhood teacher assistant. My P.A. presence was necessary throughout this case for the manipulation and positioning of the surgical extremity. My P.A. was assisting me throughout the duration of this procedure. The skill set of a physician early childhood teacher assistant was medically necessary to complete this procedure. During the surgical case the hvac controls technician was working at the back table and the physician early childhood teacher assistant was directly assisting me. Operation and Findings: Implants used: [11]mm x [380]mm Synthes 130 troch nail Plan of activity: 50% weight right leg Patient was seen and evaluated preoperatively. The patient has significant hip pain from proximal femur fracture. The risk and benefits of surgery were discussed in depth with the patient to include bleeding, infection, nonunion, malunion, need for hip replacement, painful hardware, as well as medical competitions including blood clots, stroke, heart attack, and . Informed consent was obtained. Operative site was marked. Patient was brought to the operating room and placed on fracture table. IV sedation was administered by anesthesiologist. Timeout procedure was performed. Hip and leg were prepped with alcohol followed by DuraPrep and draped in the usual sterile fashion. IV antibiotics were given prior to incision. Procedure began with removal of deep hardware. A 2 inch incision was made over the lateral aspect of the trochanter. Fluoroscopy was used to identify the location of the 3 screws. Iliotibial band was split with Bovie. The screw heads were now identified. Using the appropriate screwdriver, each of the screws was removed. Fluoroscopy confirmed removal of appropriate hardware. Next attention was turned towards reduction of fracture. Traction was applied. The leg was manipulated to achieve reduction. Excellent reduction was achieved. Fluoroscopy was used to confirm reduction. A three inch incision was made proximal to the trochanter. Subcutaneous tissue was dissected bluntly. Guidepin was placed at the tip of the trochanter and advanced into the femoral canal. Fluoroscopy confirmed appropriate guidepin placement. A opening reamer was placed over the guidepin. A long ball tipped guide pin was now placed down the femoral canal into the center of the distal femur. The nail length was now measured. Fluoroscopy confirmed appropriate guidepin placement. Flexible reamers were now passed over the guidepin to ream the intramedullary canal. The nail was attached to the insertion handle. Nail was now placed over the guidepin into the femoral canal. Fluoroscopy confirmed appropriate nail placement. Cannulas were placed through the insertion handle down to the femur. Guidepin was now placed through the femoral nail into the center of the femoral head. Fluoroscopy confirmed appropriate guidepin placement. Screw length was measured. Cannulated drill was placed over the guidepin. Appropriate length lag screw was now placed. Traction was released and compression was applied. The set screw was now tightened in static mode. Next, using perfect washoe technique two distal interlocking screws were placed. Screw holes were predrilled and screw lengths were measured. Final fluoroscopy revealed well aligned fracture with well-placed hardware. Incision was closed with 3-0 Vicryl and darcy. Sterile dressings were applied. Patient was awakened and transferred to recovery room. Dima Story MD Medications and IVs Current Medications Medications (Trade) Dose Ordered Sig/Beth Route Start Time Stop Time Status Last Admin Sodium Chloride 1,000 ml @ 100 mls/hr Q10H IV 12/19/17 00:31 12/20/17 06:31 (NS Flush) 2 ml UNSCH PRN IV FLUSH 12/19/17 00:45 12/21/17 06:34 (NS Flush) 2 ml BID IV FLUSH 12/19/17 09:00 12/21/17 08:23 (Tylenol) 650 mg Q4H PRN PO 12/19/17 00:45 (Zofran Inj) 4 mg Q6H PRN IVP 12/19/17 00:45 12/21/17 06:34 (Narcan Inj) 0.4 mg UNSCH PRN IV PUSH 12/19/17 00:45 (Candi-Colace) 1 tab BID PO 12/19/17 09:00 12/21/17 08:22 (Milk Of Magnesia Liq) 30 ml Q12H PRN PO 12/19/17 00:45 (Senokot) 17.2 mg Q12H PRN PO 12/19/17 00:45 (Dulcolax Supp) 10 mg DAILY PRN RECTAL 12/19/17 00:45 (Lactulose Liq) 30 ml DAILY PRN PO 12/19/17 00:45 (D50w (Vial) Inj) 50 ml UNSCH PRN IV PUSH 12/19/17 00:45 (Glucagon Inj) 1 mg UNSCH PRN OTHER 12/19/17 00:45 (NovoLOG SUPPLEMENTAL SCALE) 1 ACHS SLIDING SCALE SQ 12/19/17 08:00 12/21/17 12:00 (Cordarone) 400 mg BID PO 12/19/17 09:00 12/21/17 08:22 (Prinivil) 10 mg DAILY PO 12/19/17 09:00 12/21/17 08:23 (Lopressor) 75 mg BID PO 12/19/17 09:00 12/21/17 08:22 (Lipitor) 80 mg HS PO 12/19/17 21:00 12/20/17 21:44 Lactated Ringer's 1,000 ml @ 30 mls/hr Q24H PRN IV 12/19/17 06:15 12/22/17 06:14 12/19/17 07:15 Sodium Chloride 500 ml @ 30 mls/hr [id number] PRN IV 12/19/17 06:15 12/22/17 06:14 (Betadine 5% Antisepsis Kit) 1 applic THEOLOGY TEACHER PRN EACH NARE 12/19/17 06:15 12/22/17 06:14 (Chlorhexidine 2% Cloth) 3 pack THEOLOGY TEACHER PRN TOPICAL 12/19/17 06:15 12/22/17 06:14 (Lovenox Inj) 30 mg Q24H SQ 12/20/17 10:00 12/21/17 10:17 (Oscal-D 250-125) 250 mg TID PO 12/19/17 13:00 12/21/17 12:07 (Benadryl) 25 mg Q6H PRN PO 12/19/17 10:30 ([place] 7.5-325 Mg) 1 tab Q3H PRN PO 12/19/17 10:30 12/21/17 12:10 (Morphine Inj) 3 mg Q3H PRN IV PUSH 12/19/17 10:30 (Vitamin D3) 5,000 units DAILY PO 12/20/17 09:00 12/21/17 08:22 (Pill Splitter) 1 ea UNSCH PRN OTHER 12/19/17 13:30 (NovoLIN 70/30 INJ) 30 units BID SQ 12/19/17 21:00 12/21/17 08:23 (Pepcid) 20 mg BID PO 12/19/17 21:00 12/21/17 08:22 (Cepacol Extra Arielle (Sugar Free)) 1 lozenge Q2HR PRN BUCCAL 12/19/17 14:30 12/19/17 16:19 (Xylocaine 2% Viscous) 15 ml Q6H PRN SWISH-SWAL 12/19/17 14:30 Urinary Catheter: No Vascular Central Line Catheter: No A/P Assessment and Plan 77-year-old male with a past medical history significant for insulin-dependent diabetes mellitus, coronary artery disease s/p CABG, hypertension and hyperlipidemia presents the emergency department for evaluation of a fall with right hip pain. Right femur fracture: acute, s/p fall -Hip x-ray significant for acute oblique fracture at the proximal femoral shaft -Orthopedic surgery consulted, appreciate assistance -Pain control with [place] prn and IV morphine prn -12/19 S/p Removal deep hardware right hip, right femur intramedullary vickey fixation -Ortho recommending 50% weightbearing to RLE -PT consulted Diabetes mellitus, insulin dependent, uncontrolled: BG elevated to 327 today, likely secondary to missing home doses of Novolin 70/30 -Continue patient Novolin 70/30 30u bid (patient currently unsure if he takes 30 or 40u bid, will restart at lower dose and increase if still uncontrolled) -Monitor accu-checks and cover with SSI -diabetic diet Hypertension/hyperlipidemia/coronary artery disease: chronic, no complaints of chest pain -Holding home aspirin/Plavix for surgery -Continue home medications URI: patient presented with sore throat and rhinitis -sore throat worse post intubation, continue lozenges and lidocaine prn -Continue to monitor Renal insufficiency/chronic kidney disease stage II-III -Encourage fluids p.o. -Trend creatinine Left heel pain -reviewed and shows radiolucency with reactive changes in the posterior one third calcaneus suspicious for a non-displaced fracture -Will let ortho evaluate for possible orthopedic boot DVT Prophylaxis: Lovenox sq (per ortho) Discharge Planning Possible discharge Monday to SNF Annabelle Bhatti Dec 21, 2017 11:57
[2017-12-21] MEDS: ACETAMINOPHEN/HYDROcodone 325 MG/7.5 MG TAB PO PRN (12:10)
--- NOTE | 2017-12-21 13:47 | RADRPT ---
EXAM DATE/TIME: 12/21/2017 12:48 [facility] COMPARISON: No previous studies available for comparison. INDICATIONS : Left posterior foot, heel, pain MEDICAL HISTORY : Diabetes mellitus type II. Myocardial infarction. Gastroesophageal reflux disease. Stroke. Neph rolithiasis. Arthritis. Diabetes SURGICAL HISTORY : Cholecystectomy. Appendectomy. Left carotid endarterectomy. Cardiac stent,Cardiac catheterization. Ri ght hip pinning ENCOUNTER: Initial ACUITY: 3 days PAIN SCORE: 5/10 LOCATION: Left Heel FINDINGS: A radiolucency is identified extending from the posterior calcaneal cortex anteriorly towards the sub talar joints. There appears to be sclerotic reaction surrounding this area. The calcaneus is otherwis e intact. Significant arthropathy is seen at the tibiotalar joint and midfoot tarsal articulations. CONCLUSION: Radiolucency with reactive changes identified in the posterior one third of the calcaneus suspicious for a nondisplaced fracture. Significant midfoot and hindfoot degenerative joint disease. Jose Singh MD on December 21, 2017 at 13:37 Board Certified Radiologist. This report was verified electronically.
[2017-12-21 16:50] VITALS: BP 162/75; PULSE 76; RESP 18; TEMP 97.9; O2SAT 95
[2017-12-21 18:01] LABS: HEMOGLOBIN A1C 9.7 % (4.3-6.0)
[2017-12-21 20:00] VITALS: BP 157/74; PULSE 79; RESP 16; TEMP 98.5; O2SAT 96
[2017-12-21 20:15] VITALS: BP 149/72; PULSE 77; RESP 20; TEMP 98.2; O2SAT 97
[2017-12-21] MEDS: ATORVASTATIN 40 MG TAB PO SCH (21:07)
[2017-12-22] VITALS: BP 151/72; PULSE 70; RESP 18; TEMP 98.4; O2SAT 95
[2017-12-22 04:00] VITALS: BP 157/74; PULSE 75; RESP 18; TEMP 97.9; O2SAT 97
[2017-12-22 08:00] VITALS: BP 152/71; PULSE 80; RESP 19; TEMP 97.4; O2SAT 95
[2017-12-22] MEDS: INSULIN ASPART SUPPLEMENTAL SCALE SQ SCH ×4 (08:00→20:59)
[2017-12-22] MEDS: SODIUM CHLOR 0.9% 1000 ML INJ 1,000 ML IV SCH ×2 (08:31→17:10)
[2017-12-22] MEDS: INSULIN HUMAN NPH/R 70/30 1,000 UNITS/10 ML VIAL SQ SCH ×2 (09:00→21:00)
[2017-12-22] MEDS: SODIUM CHLORIDE 0.9% FLUSH 10 ML FLUSH IV FLUSH SCH ×2 (09:00→21:01)
[2017-12-22] MEDS: FAMOTIDINE 20 MG TAB PO SCH ×2 (09:14→21:00)
[2017-12-22] MEDS: METOPROLOL TARTRATE 50 MG TAB PO SCH ×2 (09:15→21:00)
[2017-12-22] MEDS: ENOXAPARIN SODIUM 30 MG/0.3 ML SYRINGE SQ SCH (09:15)
[2017-12-22] MEDS: AMIODARONE 200 MG TAB PO SCH ×2 (09:15→21:00)
[2017-12-22] MEDS: CALCIUM/VITAMIN D 250 MG/125 U TAB PO SCH ×3 (09:15→17:13)
[2017-12-22] MEDS: CHOLECALCIFEROL (VIT D3) 5000 UNIT CAP PO SCH (09:15)
[2017-12-22] MEDS: DOCUSATE SODIUM 50 MG/SENNA 8.6 MG TAB PO SCH ×2 (09:15→21:00)
--- NOTE | 2017-12-22 09:21 | PD.ORT.PN ---
Subjective Subjective Remarks Resting comfortably with no new complaint Objective Vitals Vital Signs Date Time Temp Pulse Resp B/P (MAP) Pulse Ox O2 Delivery O2 Flow Rate FiO2 12/22/17 08:00 97.4 80 19 152/71 (98) 95 12/22/17 07:39 Room Air 12/22/17 04:00 97.9 75 18 157/74 (101) 97 12/22/17 00:00 98.4 70 18 151/72 (98) 95 12/21/17 20:15 98.2 77 20 149/72 (97) 97 12/21/17 20:00 98.5 79 16 157/74 (101) 96 12/21/17 16:50 97.9 76 18 162/75 (104) 95 12/21/17 11:55 97.8 81 18 142/66 (91) 96 I/O 12/21/17 12/21/17 12/21/17 12/22/17 12/22/17 12/22/17 07:00 15:00 23:00 07:00 15:00 23:00 Intake Total 240 ml 240 ml Output Total 575 ml 150 ml 400 ml Balance -335 ml -150 ml -160 ml Intake Oral 240 ml 240 ml Output Urine Total 575 ml 150 ml 400 ml # Bowel Movements 0 0 Result Diagram: 12/21/1752912/21/17529 Imaging Last 24 hours Impressions Hip X-Ray 12/18/172029 Signed Impressions: Service Date/Time: Monday, December 18, 2017 21:01 - CONCLUSION: Acute oblique fracture at the proximal femoral shaft. The patient has surgical screws through the femoral neck from prior ORIF. Wesley Neves MD Femur X-Ray 12/18/172029 Signed Impressions: Service Date/Time: Monday, December 18, 2017 21:03 - CONCLUSION: Acute fracturing of the proximal femoral shaft. Wesley Neves MD Objective Remarks Bilateral extremities: No pain with range of motion shoulder elbow or wrist. Neurovascular intact distally Left lower extremity: Full range of motion neurovascularly intact Right lower extremity: Clean dry dressings intact. Mild swelling. Distally intact sensation with good capillary refills. Active dorsiflexion and plantar flexion of foot Assessment & Plan Assessment and Plan Right intertrochanteric femur fracture with removal of hardware and intramedullary nail fixation POD 3 Physical therapy: 50% weightbearing right lower extremity Begin daily dressing changes Lovenox Incentive spirometry Case management for rehab placement Follow-up with Dr. Velazquez or PA in 2 weeks Reynaldo Ken Jr. Dec 22, 2017 09:21
--- NOTE | 2017-12-22 11:24 | HHI.PR ---
Subjective Remarks Patient laying in bed in NAD. Denies any pain, only pain when walking. No chest pain or nausea. Still states left foot is painful to walk. Objective Vitals Vital Signs Date Time Temp Pulse Resp B/P (MAP) Pulse Ox O2 Delivery O2 Flow Rate FiO2 12/22/17 10:17 12/22/17 08:00 97.4 80 19 152/71 (98) 95 12/22/17 07:39 Room Air 12/22/17 04:00 97.9 75 18 157/74 (101) 97 12/22/17 00:00 98.4 70 18 151/72 (98) 95 12/21/17 20:15 98.2 77 20 149/72 (97) 97 12/21/17 20:00 98.5 79 16 157/74 (101) 96 12/21/17 16:50 97.9 76 18 162/75 (104) 95 12/21/17 11:55 97.8 81 18 142/66 (91) 96 I/O 12/21/17 12/21/17 12/21/17 12/22/17 12/22/17 12/22/17 07:00 15:00 23:00 07:00 15:00 23:00 Intake Total 240 ml 240 ml Output Total 575 ml 150 ml 400 ml Balance -335 ml -150 ml -160 ml Intake Oral 240 ml 240 ml Output Urine Total 575 ml 150 ml 400 ml # Bowel Movements 0 0 Result Diagram: 12/21/17 0530 12/21/17 0530 Imaging Last Impressions Foot X-Ray 12/21/17 0000 Signed Impressions: Service Date/Time: December 12:48 - CONCLUSION: Radiolucency with reactive changes identified in the posterior one third of the calcaneus suspicious for a nondisplaced fracture. Significant midfoot and hindfoot degenerative joint disease. Jose Singh MD Femur X-Ray 12/19/17 0000 Signed Impressions: Service Date/Time: Tuesday, December 19, 2017 10:11 - CONCLUSION: 1. Status post right femoral ORIF, as above. Evangelista Rios MD Hip X-Ray 12/18/17 2030 Signed Impressions: Service Date/Time: Monday, December 18, 2017 21:01 - CONCLUSION: Acute oblique fracture at the proximal femoral shaft. The patient has surgical screws through the femoral neck from prior ORIF. Wesley Neves MD Chest X-Ray 12/18/17 0000 Signed Impressions: Service Date/Time: Monday, December 18, 2017 21:46 - CONCLUSION: No acute disease. Wesley Neves MD Objective Remarks GENERAL: SKIN: Warm and dry. Dressings dry and intact HEAD: Atraumatic. Normocephalic. EYES: Pupils equal and round. No scleral icterus. No injection or drainage. ENT: No nasal bleeding or discharge. Mucous membranes pink and moist. NECK: Trachea midline. No JVD. CARDIOVASCULAR: Regular rate and rhythm. RESPIRATORY: No accessory muscle use. Clear to auscultation. Breath sounds equal bilaterally. GASTROINTESTINAL: Abdomen soft, non-tender, nondistended. Hepatic and splenic margins not palpable. MUSCULOSKELETAL: Extremities without clubbing, cyanosis, or edema. No obvious deformities. NEUROLOGICAL: Awake and alert. No obvious cranial nerve deficits. Motor grossly within normal limits. Minimal range of motion to right lower extremity , left heel pain normal speech. PSYCHIATRIC: Appropriate mood and affect; insight and judgment normal. Procedures Date of Surgery: Dec 19, 2017 Preoperative Diagnosis: Displaced right subtrochanteric femur fracture, retained hardware right hip Postoperative Diagnosis: Procedure: Removal deep hardware right hip, right femur intramedullary vickey fixation Anesthesia: General Surgeon: Dima Velazquez Political Director(s): CY Whitney PA-C The surgical procedure was assisted by my physician assistant branch operations manager. My P.A. presence was necessary throughout this case for the manipulation and positioning of the surgical extremity. My P.A. was assisting me throughout the duration of this procedure. The skill set of a physician assistant branch operations manager was medically necessary to complete this procedure. During the surgical case the manager surgical was working at the back table and the physician assistant branch operations manager was directly assisting me. Operation and Findings: Implants used: [11]mm x [380]mm Synthes 130 troch nail Plan of activity: 50% weight right leg Patient was seen and evaluated preoperatively. The patient has significant hip pain from proximal femur fracture. The risk and benefits of surgery were discussed in depth with the patient to include bleeding, infection, nonunion, malunion, need for hip replacement, painful hardware, as well as medical competitions including blood clots, stroke, heart attack, and . Informed consent was obtained. Operative site was marked. Patient was brought to the operating room and placed on fracture table. IV sedation was administered by anesthesiologist. Timeout procedure was performed. Hip and leg were prepped with alcohol followed by DuraPrep and draped in the usual sterile fashion. IV antibiotics were given prior to incision. Procedure began with removal of deep hardware. A 2 inch incision was made over the lateral aspect of the trochanter. Fluoroscopy was used to identify the location of the 3 screws. Iliotibial band was split with Bovie. The screw heads were now identified. Using the appropriate screwdriver, each of the screws was removed. Fluoroscopy confirmed removal of appropriate hardware. Next attention was turned towards reduction of fracture. Traction was applied. The leg was manipulated to achieve reduction. Excellent reduction was achieved. Fluoroscopy was used to confirm reduction. A three inch incision was made proximal to the trochanter. Subcutaneous tissue was dissected bluntly. Guidepin was placed at the tip of the trochanter and advanced into the femoral canal. Fluoroscopy confirmed appropriate guidepin placement. A opening reamer was placed over the guidepin. A long ball tipped guide pin was now placed down the femoral canal into the center of the distal femur. The nail length was now measured. Fluoroscopy confirmed appropriate guidepin placement. Flexible reamers were now passed over the guidepin to ream the intramedullary canal. The nail was attached to the insertion handle. Nail was now placed over the guidepin into the femoral canal. Fluoroscopy confirmed appropriate nail placement. Cannulas were placed through the insertion handle down to the femur. Guidepin was now placed through the femoral nail into the center of the femoral head. Fluoroscopy confirmed appropriate guidepin placement. Screw length was measured. Cannulated drill was placed over the guidepin. Appropriate length lag screw was now placed. Traction was released and compression was applied. The set screw was now tightened in static mode. Next, using perfect [place] technique two distal interlocking screws were placed. Screw holes were predrilled and screw lengths were measured. Final fluoroscopy revealed well aligned fracture with well-placed hardware. Incision was closed with 3-0 Vicryl and darcy. Sterile dressings were applied. Patient was awakened and transferred to recovery room. Dima Velazquez MD Urinary Catheter: No Vascular Central Line Catheter: No A/P Assessment and Plan 77-year-old male with a past medical history significant for insulin-dependent diabetes mellitus, coronary artery disease s/p CABG, hypertension and hyperlipidemia presents the emergency department for evaluation of a fall with right hip pain. Right femur fracture: acute, s/p fall -Hip x-ray significant for acute oblique fracture at the proximal femoral shaft -Orthopedic surgery consulted, appreciate assistance -Pain control with [place] prn and IV morphine prn -12/19 S/p Removal deep hardware right hip, right femur intramedullary vickey fixation -Ortho recommending 50% weightbearing to RLE -PT consulted Diabetes mellitus, insulin dependent, uncontrolled: BG elevated to 327 today, likely secondary to missing home doses of Novolin 70/30 -Continue patient Novolin 70/30 30u bid (patient currently unsure if he takes 30 or 40u bid, will restart at lower dose and increase if still uncontrolled) -Monitor accu-checks and cover with SSI -diabetic diet Hypertension/hyperlipidemia/coronary artery disease: chronic, no complaints of chest pain -Holding home aspirin/Plavix for surgery -Continue home medications, increase lisinopril to 20mg daily due to hypertension URI: patient presented with sore throat and rhinitis -sore throat worse post intubation, continue lozenges and lidocaine prn -Continue to monitor Renal insufficiency/chronic kidney disease stage II-III -Encourage fluids p.o. -Trend creatinine Left heel pain -reviewed and shows radiolucency with reactive changes in the posterior one third calcaneus suspicious for a non-displaced fracture -Discussed with coy [place] who recommends CT of foot to further evaluate fracture. CT shows no fracture, cont WBAT DVT Prophylaxis: Lovenox sq (per ortho) Discharge Planning discharge once SNF is set up Annabelle Bhatti Dec 22, 2017 11:24
[2017-12-22 12:00] VITALS: BP 167/79; PULSE 70; RESP 18; TEMP 98; O2SAT 97
--- NOTE | 2017-12-22 13:02 | RADRPT ---
EXAM DATE/TIME: 12/22/2017 12:19 [facility] COMPARISON: No previous studies available for comparison. INDICATIONS : Left heel pain with ambulation. Possible nondisplaced fracture seen on Xray. RADIATION DOSE: 7.29 CTDIvol (mGy) MEDICAL HISTORY : Osteoarthritis. Cardiovascular disease Hypertension.Right hip fracture SURGICAL HISTORY : Cholecystectomy. Appendectomy. ENCOUNTER: Initial ACUITY: 1 week PAIN SCALE: 6/10 LOCATION: Left foot TECHNIQUE: Volumetric scanning of the foot was performed. Using automated exposure control and adjustment of th e mA and/or kV according to patient size, radiation dose was kept as low as reasonably achievable to obtain optimal diagnostic quality images. DICOM format image data is available electronically for re view and comparison. FINDINGS: Extensive distal artery calcifications are evident with aggressive disuse osteopenia. Degenerative c hanges are present in the tibiotalar joint. Calcaneus is intact. Degenerative changes are seen carpal metatars al joints. Calcaneal fracture is not appreciated. Minimal plantar calcifications are evident. Minimal Achilles spurring is evident. CONCLUSION: Extensive vascular calcifications as above Minimal plantar fascia calcification. Moderate degenerative changes. Truong Callaway MD FACR on December 22, 2017 at 12:58 Board Certified Radiologist. This report was verified electronically.
[2017-12-22 13:36] LABS: BICARBONATE 27.1 MEQ/L (21.0-32.0); CALCIUM 9.2 MG/DL (8.5-10.1); CREATININE 1.31 MG/DL (0.60-1.30)
[2017-12-22 16:00] VITALS: BP 172/81; PULSE 75; RESP 18; TEMP 98.6; O2SAT 95
[2017-12-22 20:00] VITALS: BP 168/78; PULSE 79; RESP 18; TEMP 98.2; O2SAT 96
[2017-12-22] MEDS: ATORVASTATIN 40 MG TAB PO SCH (21:00)
[2017-12-23 00:03] VITALS: BP 136/63; PULSE 80; RESP 18; TEMP 97.5; O2SAT 94
[2017-12-23] MEDS: SODIUM CHLOR 0.9% 1000 ML INJ 1,000 ML IV SCH (04:31)
[2017-12-23 06:00] LABS: AUTOMATED NEUTROPHIL # 5.7 TH/MM3 (1.8-7.7); BASOPHIL % 0.4 % (0.0-2.0); EOSINOPHIL # 0.3 TH/MM3 (0-0.4); EOSINOPHIL % 3.2 % (0.0-4.0); HEMATOCRIT 24.4 % (39.0-51.0); HEMOGLOBIN 8.5 GM/DL (13.0-17.0); LYMPH % 13.5 % (9.0-44.0); LYMPHOCYTE # 1.1 TH/MM3 (1.0-4.8); MEAN CELL VOLUME 99.8 FL (80.0-100.0); MEAN CORPUSCULAR HEMOGLOBIN 34.8 PG (27.0-34.0); MEAN CORPUSCULAR HGB CONC 34.9 % (32.0-36.0); MEAN PLATELET VOLUME 8.5 FL (7.0-11.0); MONO % 12.1 % (0.0-8.0); NEUT % 70.8 % (16.0-70.0); PLATELET COUNT 241 TH/MM3 (150-450); RED BLOOD COUNT 2.44 MIL/MM3 (4.50-5.90); RED CELL DISTRIBUTION WIDTH 14.2 % (11.6-17.2); WHITE BLOOD COUNT 8.1 TH/MM3 (4.0-11.0)
[2017-12-23 06:12] LABS: BICARBONATE 26.6 MEQ/L (21.0-32.0); CALCIUM 9.2 MG/DL (8.5-10.1); CREATININE 1.3 MG/DL (0.60-1.30)
[2017-12-23 08:00] VITALS: BP 171/79; PULSE 84; RESP 20; TEMP 97.4; O2SAT 96
[2017-12-23] MEDS: INSULIN ASPART SUPPLEMENTAL SCALE SQ SCH ×2 (08:00→12:00)
[2017-12-23] MEDS: DOCUSATE SODIUM 50 MG/SENNA 8.6 MG TAB PO SCH (09:00)
[2017-12-23] MEDS: SODIUM CHLORIDE 0.9% FLUSH 10 ML FLUSH IV FLUSH SCH (09:00)
[2017-12-23] MEDS: INSULIN HUMAN NPH/R 70/30 1,000 UNITS/10 ML VIAL SQ SCH (09:00)
[2017-12-23] MEDS ORDERED: LISINOPRIL 20 MG TAB PO SCH (09:00)
[2017-12-23] MEDS: AMIODARONE 200 MG TAB PO SCH (11:47)
[2017-12-23] MEDS: CALCIUM/VITAMIN D 250 MG/125 U TAB PO SCH ×2 (11:47→12:06)
[2017-12-23] MEDS: METOPROLOL TARTRATE 50 MG TAB PO SCH (11:48)
[2017-12-23] MEDS: CHOLECALCIFEROL (VIT D3) 5000 UNIT CAP PO SCH (11:48)
[2017-12-23] MEDS: ENOXAPARIN SODIUM 30 MG/0.3 ML SYRINGE SQ SCH (11:49)
[2017-12-23] MEDS: FAMOTIDINE 20 MG TAB PO SCH (11:49)
[2017-12-23 12:00] VITALS: BP 172/75; PULSE 79; RESP 20; TEMP 98.1; O2SAT 96
[2017-12-23] MEDS ORDERED: LISI-515 PO (12:09)
--- NOTE | 2017-12-23 12:15 | HHI.DS ---
Discharge Summary Admission Date Dec 18, 2017 at 22:29 Discharge Date: Dec 23, 2017 Admitting Diagnosis acute right femoral shaft fracture (1) LJ (acute kidney injury) ICD Code: N17.9 - Acute kidney failure, unspecified Status: Resolved (2) Right femoral shaft fracture ICD Code: S72.301A - Unspecified fracture of shaft of right femur, initial encounter for closed fracture Status: Acute (3) HTN (hypertension) ICD Code: I10 - Essential (primary) hypertension Status: Chronic (4) DM (diabetes mellitus) ICD Code: E11.9 - Type 2 diabetes mellitus without complications Status: Chronic Procedures Date of Surgery: Dec 19, 2017 Preoperative Diagnosis: Displaced right subtrochanteric femur fracture, retained hardware right hip Postoperative Diagnosis: Procedure: Removal deep hardware right hip, right femur intramedullary vickey fixation Anesthesia: General Surgeon: Dima Velazquez Head Of Art(s): CY Whitney PA-C The surgical procedure was assisted by my physician camp assistant. My P.A. presence was necessary throughout this case for the manipulation and positioning of the surgical extremity. My P.A. was assisting me throughout the duration of this procedure. The skill set of a physician camp assistant was medically necessary to complete this procedure. During the surgical case the surgical appliances salesperson was working at the back table and the physician camp assistant was directly assisting me. Operation and Findings: Implants used: [11]mm x [380]mm Synthes 130 troch nail Plan of activity: 50% weight right leg Patient was seen and evaluated preoperatively. The patient has significant hip pain from proximal femur fracture. The risk and benefits of surgery were discussed in depth with the patient to include bleeding, infection, nonunion, malunion, need for hip replacement, painful hardware, as well as medical competitions including blood clots, stroke, heart attack, and . Informed consent was obtained. Operative site was marked. Patient was brought to the operating room and placed on fracture table. IV sedation was administered by anesthesiologist. Timeout procedure was performed. Hip and leg were prepped with alcohol followed by DuraPrep and draped in the usual sterile fashion. IV antibiotics were given prior to incision. Procedure began with removal of deep hardware. A 2 inch incision was made over the lateral aspect of the trochanter. Fluoroscopy was used to identify the location of the 3 screws. Iliotibial band was split with Bovie. The screw heads were now identified. Using the appropriate screwdriver, each of the screws was removed. Fluoroscopy confirmed removal of appropriate hardware. Next attention was turned towards reduction of fracture. Traction was applied. The leg was manipulated to achieve reduction. Excellent reduction was achieved. Fluoroscopy was used to confirm reduction. A three inch incision was made proximal to the trochanter. Subcutaneous tissue was dissected bluntly. Guidepin was placed at the tip of the trochanter and advanced into the femoral canal. Fluoroscopy confirmed appropriate guidepin placement. A opening reamer was placed over the guidepin. A long ball tipped guide pin was now placed down the femoral canal into the center of the distal femur. The nail length was now measured. Fluoroscopy confirmed appropriate guidepin placement. Flexible reamers were now passed over the guidepin to ream the intramedullary canal. The nail was attached to the insertion handle. Nail was now placed over the guidepin into the femoral canal. Fluoroscopy confirmed appropriate nail placement. Cannulas were placed through the insertion handle down to the femur. Guidepin was now placed through the femoral nail into the center of the femoral head. Fluoroscopy confirmed appropriate guidepin placement. Screw length was measured. Cannulated drill was placed over the guidepin. Appropriate length lag screw was now placed. Traction was released and compression was applied. The set screw was now tightened in static mode. Next, using perfect mary's igloo technique two distal interlocking screws were placed. Screw holes were predrilled and screw lengths were measured. Final fluoroscopy revealed well aligned fracture with well-placed hardware. Incision was closed with 3-0 Vicryl and darcy. Sterile dressings were applied. Patient was awakened and transferred to recovery room. Dima Velazquez MD Brief History - From Admission 77-year-old male with a past medical history significant for insulin-dependent diabetes mellitus, coronary artery disease, hypertension and hyperlipidemia presents the emergency department for evaluation of a fall. The patient reports that he was placed taking out the trash when he lost his footing and fell backwards. He states he then twisted to the right following on his right hip. He is denies any loss of consciousness. He denies any other injuries. Complains of right lower extremity pain. No chest pain or shortness of breath. No abdominal pain. No nausea/vomiting/diarrhea. No weakness/fatigue. CBC/BMP: 12/23/17 0520 12/23/17 0520 Significant Findings Laboratory Tests Test 12/21/17 05:30 12/22/17 13:04 12/23/17 05:20 Red Blood Count 2.51 MIL/MM3 (4.50-5.90) 2.44 MIL/MM3 (4.50-5.90) Hemoglobin 8.7 GM/DL (13.0-17.0) 8.5 GM/DL (13.0-17.0) Hematocrit 25.2 % (39.0-51.0) 24.4 % (39.0-51.0) Mean Corpuscular Volume 100.5 FL (80.0-100.0) Mean Corpuscular Hemoglobin 34.6 PG (27.0-34.0) 34.8 PG (27.0-34.0) Neutrophils (%) (Auto) 70.7 % (16.0-70.0) 70.8 % (16.0-70.0) Monocytes (%) (Auto) 13.4 % (0.0-8.0) 12.1 % (0.0-8.0) Monocytes # (Auto) 1.2 TH/MM3 (0-0.9) 1.0 TH/MM3 (0-0.9) Blood Urea Nitrogen 32 MG/DL (7-18) 25 MG/DL (7-18) 24 MG/DL (7-18) Creatinine 1.42 MG/DL (0.60-1.30) 1.31 MG/DL (0.60-1.30) Random Glucose 161 MG/DL (74-106) Total Protein 5.8 GM/DL (6.4-8.2) Albumin 2.5 GM/DL (3.4-5.0) Chloride Level 112 MEQ/L (98-107) 111 MEQ/L (98-107) 110 MEQ/L (98-107) Estimat Glomerular Filtration Rate 48 ML/MIN (>89) 53 ML/MIN (>89) 54 ML/MIN (>89) Hemoglobin A1c 9.7 % (4.3-6.0) Imaging Last Impressions Lower Extremity CT 12/22/17 0000 Signed Impressions: Service Date/Time: Friday, December 22, 2017 12:19 - CONCLUSION: Extensive vascular calcifications as above Minimal plantar fascia calcification. Moderate degenerative changes. Truong Callaway MD FACR Foot X-Ray 12/21/17 0000 Signed Impressions: Service Date/Time: December 12:48 - CONCLUSION: Radiolucency with reactive changes identified in the posterior one third of the calcaneus suspicious for a nondisplaced fracture. Significant midfoot and hindfoot degenerative joint disease. Jose Singh MD Femur X-Ray 12/19/17 0000 Signed Impressions: Service Date/Time: Tuesday, December 19, 2017 10:11 - CONCLUSION: 1. Status post right femoral ORIF, as above. Evangelista Rios MD Hip X-Ray 12/18/[id number] Signed Impressions: Service Date/Time: Monday, December 18, 2017 21:01 - CONCLUSION: Acute oblique fracture at the proximal femoral shaft. The patient has surgical screws through the femoral neck from prior ORIF. Wesley Neves MD Chest X-Ray 12/18/17 0000 Signed Impressions: Service Date/Time: Monday, December 18, 2017 21:46 - CONCLUSION: No acute disease. Wesley Neves MD PE at Discharge CARDIOVASCULAR: Regular rate and rhythm. RESPIRATORY: No accessory muscle use. Clear to auscultation. Breath sounds equal bilaterally. GASTROINTESTINAL: Abdomen soft, non-tender, nondistended. MUSCULOSKELETAL: Extremities without edema. No obvious deformities. NEUROLOGICAL: Awake and alert. speech normal Pt update on day of discharge pain controlled, no nausea or vomiting. eager to be discharged. Hospital Course Pt admitted for Right femur fracture: acute, s/p fall, Hip x-ray significant for acute oblique fracture at the proximal femoral shaft -12/19 S/p Removal deep hardware right hip, right femur intramedullary vickey fixation. Orthopedic surgery following continue pain control and anticoagulation. -Ortho recommending 50% weightbearing to RLE and daily dressing changes. d/c to SNF. Diabetes mellitus, insulin dependent, uncontrolled: BG elevated to 327 today, likely secondary to missing home doses of Novolin 70/30 -Continue home regimen, stable Hypertension/hyperlipidemia/coronary artery disease: chronic, no complaints of chest pain -Holding home aspirin/Plavix per sx and resume once cleared by ortho as an outpatient -Continue home medications, increased lisinopril to 20mg daily due to hypertension. script in chart Renal insufficiency/chronic kidney disease stage II-III resolved. Left heel pain -reviewed and shows radiolucency with reactive changes in the posterior one third calcaneus suspicious for a non-displaced fracture -Discussed with ortho PA who recommendation was CT of foot to further evaluate fracture. CT showed no fracture, cont WBAT Pt Condition on Discharge: Stable Discharge Disposition: Discharge to SNF Discharge Time: > 30 minutes Discharge Instructions DIET: Follow Instructions for: Heart Healthy Diet, Diabetic Diet Activities you can perform: See Additionl Instruction Other Activity Instructions: 50% weightbearing right lower extremity Begin daily dressing changes Follow up Referrals: Orthopedics - 2 Weeks @ [facility] with Dima Velazquez MD PCP Follow-up - 1 Week New Medications: Calcium Carbonate-Vitamin D (Calcium 600+D 200) 600-200 Mg-Unit Tab 1 TAB PO BID for Nutritional Supplement, #60 TAB 0 Refills Cholecalciferol (Vitamin D3) 2,000 Unit Cap 2000 UNITS PO DAILY for Nutritional Supplement, #60 CAP 0 Refills Ergocalciferol (Ergocalciferol) 50,000 Unit Cap 18311 UNITS PO Q7D for Nutritional Supplement, #8 CAP Hydrocodone-Acetaminophen (Hydrocodone-Acetaminophen) 7.5 Mg-325 Mg Tab 1 TAB PO Q4H PRN for PAIN, #60 TAB 0 Refills Rivaroxaban (Xarelto) 10 Mg Tab 10 MG PO DAILY for Blood Clot Prevention, #14 TAB 0 Refills Walker/Adult/Folding (Walker/Adult/Folding) 1 Mis Mis EA .XX DIRECTED, #1 0 Refills Lisinopril (Lisinopril) 20 Mg Tab 20 MG PO DAILY, #30 TAB Continued Medications: Amiodarone (Amiodarone) 200 Mg Tab 400 MG PO BID for heart, #60 TAB Insulin Human Isophane-Regular 70-30 Inj (Novolin 70-30 Inj) 1,000 Unit/10 Ml Vial 30 UNITS SQ BID for Blood Sugar Management, ML 0 Refills Metoprolol Tartrate (Metoprolol Tartrate) 75 Mg Tab 75 MG PO BID, #60 TAB 0 Refills Ranitidine (Zantac 150 Maximum Strength) 150 Mg Tab 150 MG PO BID, TAB Rosuvastatin (Rosuvastatin) 40 Mg Tab 40 MG PO HS for Cholesterol Management, #30 TAB 0 Refills Discontinued Medications: Prednisone (21) 10 mg tab Dose Pack (Prednisone (21) 10 mg tab Dose Pack) 10 Mg Pack 10 MG PO DIRECTED for Inflammation, #1 DSPK 0 Refills Nicki Guerrero MD Dec 23, 2017 12:15
== END 2017-12-23 15:33 | DRG 464 ==
LOC: NEPE 20:23 → NEDA 22:29 → NEPFCDU 12-19 00:48 → N06B 12-19 09:47
PROVIDERS: ADMIT Hospitalist; ATTEND Hospitalist
PROC: 0QS606Z Reposition Right Upper Femur with Intramedullary Internal Fixation Device, Open Approach (ICD-10-PCS; 2017-12-19)
PROC: 0SPR0JZ Removal of Synthetic Substitute from Right Hip Joint, Femoral Surface, Open Approach (ICD-10-PCS; principal; 2017-12-19 09:06)
DX: S72.21XA Displaced subtrochanteric fracture of right femur, initial encounter for closed fracture (principal); T84.84XA Pain due to internal orthopedic prosthetic devices, implants and grafts, initial encounter; N17.9 Acute kidney failure, unspecified; E11.22 Type 2 diabetes mellitus with diabetic chronic kidney disease; E11.65 Type 2 diabetes mellitus with hyperglycemia; I12.9 Hypertensive chronic kidney disease with stage 1 through stage 4 chronic kidney disease, or unspecified chronic kidney disease; N18.3 Chronic kidney disease, stage 3 (moderate); K21.9 Gastro-esophageal reflux disease without esophagitis; E78.00 Pure hypercholesterolemia, unspecified; M19.90 Unspecified osteoarthritis, unspecified site; R60.0 Localized edema; I25.10 Atherosclerotic heart disease of native coronary artery without angina pectoris; E78.5 Hyperlipidemia, unspecified; J00 Acute nasopharyngitis [common cold]; W01.0XXA Fall on same level from slipping, tripping and stumbling without subsequent striking against object, initial encounter; I25.2 Old myocardial infarction; Z86.73 Personal history of transient ischemic attack (TIA), and cerebral infarction without residual deficits; Z79.4 Long term (current) use of insulin; Z95.1 Presence of aortocoronary bypass graft
CPT/HCPCS: 71045; 73502; 73552; 73630; 73700; 76000; 80048; 80053; 81001; 82306; 82948; 83036; 83735; 84100; 84439; 84443; 85025; 85610; 85730; 86850; 86900; 86901; 93005; 96374; 96375; C1713; J0690; J1170; J1580; J1650; J1815; J2270; J2370; J2405; J2710; J3010; J3370; J7030; J7050; J7120